=== PATIENT | male | born 1960 | race Caucasian/White ===

== ENCOUNTER 2021-08-02 16:53 | Inpatient (IN) ==
[2021-08-02] MEDS ORDERED: Ondansetron 4 MG/2 ML VIAL IVP PRN (19:46)
[2021-08-02] MEDS ORDERED: Naloxone 0.4 MG/ML INJ IVP PRN (19:46)
[2021-08-02] MEDS ORDERED: Ipratropium 1 PUFF INHALER IH PRN (19:48)
[2021-08-03] MEDS: *HR* Enoxaparin 40 MG/0.4 ML SYRINGE SQ SCH (05:11)
[2021-08-03 05:27] LABS: Basophils % 0.2 %; Hematocrit 44.5 % (37.5-50.1); Hemoglobin 15.3 g/dL (12.9-16.9); Immature Granulocytes % 0.5 % (0-4); Lymphocytes # 0.4 K/mcL (0.6-4.6); Lymphocytes % 8.9 %; Mean Corpuscular HGB Conc 34.4 g/dL (31.6-35.5); Mean Corpuscular Hemoglobin 31.2 pg (28.0-33.3); Mean Corpuscular Volume 90.6 fL (83.0-100.0); Mean Platelet Volume 11.8 fL (9.4-12.4); Monocytes # 0.6 K/mcL (0.0-1.3); Monocytes % 14.9 %; Neutrophils # 3.2 K/mcL (1.6-8.9); Platelet Count 110 K/mcL (140-400); Red Blood Count 4.91 M/mcL (4.19-5.50); Red Cell Distribution Width 11.8 % (11.5-14.5); Segmented Neutrophils % 75.5 %; White Blood Count 4.2 K/mcL (4.3-11.1)
[2021-08-03 05:44] LABS: D-Dimer 446 ng/mLFEU (0-500)
[2021-08-03 06:12] LABS: Fibrinogen 469 mg/dL (169-393)
[2021-08-03 06:21] LABS: Alanine Aminotransferase 106 Units/L (7-52); Albumin 3.6 g/dL (3.5-5.7); Albumin/Globulin Ratio 1.1 (1.1-2.2); Alkaline Phosphatase 41 Units/L (34-104); Aspartate Amino Transferase 111 Units/L (13-39); BUN/Creatinine Ratio 21 (6-26); Bilirubin,Total 0.7 mg/dL (0.3-1.0); Blood Urea Nitrogen 18 mg/dL (6-20); Calcium 8.8 mg/dL (8.6-10.3); Carbon Dioxide 27 mEq/L (23-29); Chloride 101 mEq/L (98-107); Globulin 3.3 g/dL (2.4-3.5); Glucose 138 mg/dL (70-105); Osmolality,Calculated 290 (280-300); Potassium 3.9 mEq/L (3.5-5.1); Sodium 138 mEq/L (136-145); Total Protein 6.9 g/dL (6.4-8.9); eGFR For African Americans > 60 (> 60); eGFR For Non-African Americans > 60 (> 60)
[2021-08-03] MEDS: Dexamethasone Sodium Phos/PF 10 MG/ML VIAL IVP SCH (08:30)
[2021-08-03] MEDS: Ipratropium 1 PUFF INHALER IH SCH ×4 (08:38→20:31)
[2021-08-03] MEDS: Remdesivir 100 MG in 0.9 % Sodium Chloride 100 ML IVPB SCH (16:51)
[2021-08-03 19:45] LABS: C-Reactive Protein 24 mg/L (Less than 10); Ferritin > 1500 ng/mL (20-250)
[2021-08-03] MEDS ORDERED: Chloraseptic Spray 177 ML BOTTLE MM PRN (22:28)
[2021-08-04] MEDS: Ipratropium 1 PUFF INHALER IH SCH ×7 (03:14→23:17)
[2021-08-04] MEDS: *HR* Enoxaparin 40 MG/0.4 ML SYRINGE SQ SCH (05:19)
[2021-08-04] MEDS: Cholecalciferol (D-3) 1,000 UNIT (25MCG) TABLET PO SCH (08:16)
[2021-08-04] MEDS: Ascorbic Acid 500 MG TABLET PO SCH (08:16)
[2021-08-04] MEDS: Dexamethasone Sodium Phos/PF 10 MG/ML VIAL IVP SCH (08:16)
[2021-08-04 10:08] LABS: Eosinophils % 0.2 %; Mean Corpuscular Volume 92.2 fL (83.0-100.0); Red Cell Distribution Width 11.9 % (11.5-14.5)
[2021-08-04 10:10] LABS: Basophils % 0.2 %; Hemoglobin 15.8 g/dL (12.9-16.9); Immature Granulocytes % 0.5 % (0-4); Immature Platelets 15.8 % (1.1-6.1); Lymphocytes # 0.3 K/mcL (0.6-4.6); Lymphocytes % 5.2 %; Mean Corpuscular HGB Conc 33.6 g/dL (31.6-35.5); Mean Platelet Volume 12.4 fL (9.4-12.4); Monocytes # 0.4 K/mcL (0.0-1.3); Monocytes % 6.1 %; Platelet Count 111 K/mcL (140-400); Segmented Neutrophils % 87.8 %; White Blood Count 6.5 K/mcL (4.3-11.1)
[2021-08-04 10:18] LABS: Neutrophils # 5.7 K/mcL (1.6-8.9)
[2021-08-04 10:27] LABS: Alanine Aminotransferase 229 Units/L (7-52); Albumin 3.5 g/dL (3.5-5.7); Alkaline Phosphatase 45 Units/L (34-104); Aspartate Amino Transferase 168 Units/L (13-39); BUN/Creatinine Ratio 30 (6-26); Bilirubin,Total 0.9 mg/dL (0.3-1.0); Blood Urea Nitrogen 24 mg/dL (6-20); Calcium 8.6 mg/dL (8.6-10.3); Carbon Dioxide 27 mEq/L (23-29); Chloride 100 mEq/L (98-107); Globulin 3.4 g/dL (2.4-3.5); Glucose 207 mg/dL (70-105); Osmolality,Calculated 296 (280-300); Potassium 4.2 mEq/L (3.5-5.1); Sodium 138 mEq/L (136-145); Total Protein 6.9 g/dL (6.4-8.9); eGFR For African Americans > 60 (> 60); eGFR For Non-African Americans > 60 (> 60)
[2021-08-04] MEDS: Remdesivir 100 MG in 0.9 % Sodium Chloride 100 ML IVPB SCH (17:10)
[2021-08-05] MEDS: Ipratropium 1 PUFF INHALER IH SCH ×6 (03:48→23:32)
[2021-08-05] MEDS: *HR* Enoxaparin 40 MG/0.4 ML SYRINGE SQ SCH (06:20)
[2021-08-05 06:29] LABS: Basophils % 0.3 %; Hematocrit 44.1 % (37.5-50.1); Immature Granulocytes % 0.4 % (0-4); Lymphocytes # 0.4 K/mcL (0.6-4.6); Lymphocytes % 5.7 %; Mean Corpuscular Hemoglobin 30.9 pg (28.0-33.3); Mean Corpuscular Volume 90.9 fL (83.0-100.0); Mean Platelet Volume 11.5 fL (9.4-12.4); Monocytes # 0.8 K/mcL (0.0-1.3); Neutrophils # 6.4 K/mcL (1.6-8.9); Platelet Count 143 K/mcL (140-400); Red Blood Count 4.85 M/mcL (4.19-5.50); Red Cell Distribution Width 11.7 % (11.5-14.5); Segmented Neutrophils % 83.6 %; White Blood Count 7.7 K/mcL (4.3-11.1)
[2021-08-05 06:49] LABS: Platelet Estimate Normal (Normal)
[2021-08-05 06:55] LABS: Alanine Aminotransferase 192 Units/L (7-52); Albumin 3.3 g/dL (3.5-5.7); Albumin/Globulin Ratio 1.2 (1.1-2.2); Alkaline Phosphatase 42 Units/L (34-104); Aspartate Amino Transferase 81 Units/L (13-39); BUN/Creatinine Ratio 31 (6-26); Bilirubin,Total 0.7 mg/dL (0.3-1.0); Blood Urea Nitrogen 22 mg/dL (6-20); Calcium 8.3 mg/dL (8.6-10.3); Carbon Dioxide 28 mEq/L (23-29); Chloride 104 mEq/L (98-107); Globulin 2.8 g/dL (2.4-3.5); Glucose 150 mg/dL (70-105); Lactate Dehydrogenase 380 Units/L (140-271); Osmolality,Calculated 294 (280-300); Sodium 139 mEq/L (136-145); Total Protein 6.1 g/dL (6.4-8.9); eGFR For African Americans > 60 (> 60); eGFR For Non-African Americans > 60 (> 60)
[2021-08-05 07:13] LABS: Ferritin > 1500 ng/mL (20-250)
[2021-08-05] MEDS: Dexamethasone Sodium Phos/PF 10 MG/ML VIAL IVP SCH (07:25)
[2021-08-05] MEDS: Ascorbic Acid 500 MG TABLET PO SCH (07:25)
[2021-08-05] MEDS: Cholecalciferol (D-3) 1,000 UNIT (25MCG) TABLET PO SCH (07:25)
[2021-08-05] MEDS: Remdesivir 100 MG in 0.9 % Sodium Chloride 100 ML IVPB SCH (17:19)
[2021-08-06] MEDS: Ipratropium 1 PUFF INHALER IH SCH ×5 (04:07→19:56)
[2021-08-06] MEDS: *HR* Enoxaparin 40 MG/0.4 ML SYRINGE SQ SCH (06:03)
[2021-08-06 07:54] LABS: Basophils % 0.2 %; Hematocrit 43.1 % (37.5-50.1); Hemoglobin 14.5 g/dL (12.9-16.9); Immature Granulocytes % 1.2 % (0-4); Lymphocytes # 0.4 K/mcL (0.6-4.6); Lymphocytes % 4.3 %; Mean Corpuscular HGB Conc 33.6 g/dL (31.6-35.5); Mean Corpuscular Hemoglobin 31.4 pg (28.0-33.3); Mean Corpuscular Volume 93.3 fL (83.0-100.0); Mean Platelet Volume 11.7 fL (9.4-12.4); Monocytes # 0.6 K/mcL (0.0-1.3); Monocytes % 5.8 %; Platelet Count 175 K/mcL (140-400); Red Blood Count 4.62 M/mcL (4.19-5.50); Red Cell Distribution Width 11.7 % (11.5-14.5); Segmented Neutrophils % 88.5 %; White Blood Count 10.2 K/mcL (4.3-11.1)
[2021-08-06 08:19] LABS: BUN/Creatinine Ratio 27 (6-26); Blood Urea Nitrogen 21 mg/dL (6-20); Calcium 8.4 mg/dL (8.6-10.3); Carbon Dioxide 29 mEq/L (23-29); Chloride 103 mEq/L (98-107); Glucose 146 mg/dL (70-105); Osmolality,Calculated 294 (280-300); Potassium 4.6 mEq/L (3.5-5.1); Sodium 139 mEq/L (136-145); eGFR For African Americans > 60 (> 60); eGFR For Non-African Americans > 60 (> 60)
[2021-08-06] MEDS: Dexamethasone Sodium Phos/PF 10 MG/ML VIAL IVP SCH (08:25)
[2021-08-06] MEDS: Ascorbic Acid 500 MG TABLET PO SCH (08:26)
[2021-08-06] MEDS: Cholecalciferol (D-3) 1,000 UNIT (25MCG) TABLET PO SCH (08:26)
[2021-08-07] MEDS: Ipratropium 1 PUFF INHALER IH SCH ×6 (00:03→20:21)
[2021-08-07 05:25] LABS: Basophils % 0.2 %; Hematocrit 42.6 % (37.5-50.1); Hemoglobin 14.8 g/dL (12.9-16.9); Immature Granulocytes % 1.4 % (0-4); Lymphocytes # 0.4 K/mcL (0.6-4.6); Lymphocytes % 3.9 %; Mean Corpuscular HGB Conc 34.7 g/dL (31.6-35.5); Mean Corpuscular Hemoglobin 31.9 pg (28.0-33.3); Mean Corpuscular Volume 91.8 fL (83.0-100.0); Mean Platelet Volume 11.3 fL (9.4-12.4); Monocytes # 0.6 K/mcL (0.0-1.3); Neutrophils # 10.2 K/mcL (1.6-8.9); Platelet Count 183 K/mcL (140-400); Red Blood Count 4.64 M/mcL (4.19-5.50); Red Cell Distribution Width 11.7 % (11.5-14.5); Segmented Neutrophils % 89.5 %; White Blood Count 11.4 K/mcL (4.3-11.1)
[2021-08-07 05:50] LABS: Alanine Aminotransferase 107 Units/L (7-52); Albumin 3.2 g/dL (3.5-5.7); Alkaline Phosphatase 45 Units/L (34-104); Aspartate Amino Transferase 24 Units/L (13-39); BUN/Creatinine Ratio 30 (6-26); Bilirubin,Total 0.7 mg/dL (0.3-1.0); Blood Urea Nitrogen 22 mg/dL (6-20); Calcium 8.4 mg/dL (8.6-10.3); Carbon Dioxide 26 mEq/L (23-29); Chloride 105 mEq/L (98-107); Globulin 3.2 g/dL (2.4-3.5); Glucose 170 mg/dL (70-105); Lactate Dehydrogenase 385 Units/L (140-271); Osmolality,Calculated 291 (280-300); Potassium 4.7 mEq/L (3.5-5.1); Sodium 137 mEq/L (136-145); Total Protein 6.4 g/dL (6.4-8.9); eGFR For African Americans > 60 (> 60); eGFR For Non-African Americans > 60 (> 60)
[2021-08-07 06:03] LABS: Ferritin 1415 ng/mL (20-250)
[2021-08-07] MEDS: *HR* Enoxaparin 40 MG/0.4 ML SYRINGE SQ SCH (06:27)
[2021-08-07] MEDS ORDERED: Furosemide 40 MG/4 ML VIAL IVP ONE (09:13)
[2021-08-07] MEDS: Ascorbic Acid 500 MG TABLET PO SCH (09:35)
[2021-08-07] MEDS: Dexamethasone Sodium Phos/PF 10 MG/ML VIAL IVP SCH (09:35)
[2021-08-07] MEDS: Cholecalciferol (D-3) 1,000 UNIT (25MCG) TABLET PO SCH (09:35)
[2021-08-07] MEDS: ELDERBERRY PO SCH (11:35)
[2021-08-08] MEDS: Ipratropium 1 PUFF INHALER IH SCH ×7 (00:10→23:08)
[2021-08-08 03:38] LABS: Basophils # 0.1 K/mcL (0.0-0.2); Basophils % 0.4 %; Hematocrit 45.7 % (37.5-50.1); Hemoglobin 15.7 g/dL (12.9-16.9); Immature Granulocytes % 2.7 % (0-4); Lymphocytes # 0.4 K/mcL (0.6-4.6); Lymphocytes % 2.8 %; Mean Corpuscular HGB Conc 34.4 g/dL (31.6-35.5); Mean Corpuscular Hemoglobin 31.5 pg (28.0-33.3); Mean Corpuscular Volume 91.6 fL (83.0-100.0); Mean Platelet Volume 11.3 fL (9.4-12.4); Monocytes # 0.5 K/mcL (0.0-1.3); Neutrophils # 11.4 K/mcL (1.6-8.9); Platelet Count 235 K/mcL (140-400); Red Blood Count 4.99 M/mcL (4.19-5.50); Red Cell Distribution Width 11.8 % (11.5-14.5); Segmented Neutrophils % 90.1 %; White Blood Count 12.7 K/mcL (4.3-11.1)
[2021-08-08 03:55] LABS: Alanine Aminotransferase 89 Units/L (7-52); Albumin 3.4 g/dL (3.5-5.7); Alkaline Phosphatase 46 Units/L (34-104); Aspartate Amino Transferase 24 Units/L (13-39); BUN/Creatinine Ratio 26 (6-26); Bilirubin,Total 0.7 mg/dL (0.3-1.0); Blood Urea Nitrogen 21 mg/dL (6-20); Calcium 8.5 mg/dL (8.6-10.3); Carbon Dioxide 28 mEq/L (23-29); Chloride 99 mEq/L (98-107); Globulin 3.5 g/dL (2.4-3.5); Glucose 227 mg/dL (70-105); Osmolality,Calculated 290 (280-300); Potassium 4.7 mEq/L (3.5-5.1); Sodium 135 mEq/L (136-145); Total Protein 6.9 g/dL (6.4-8.9); eGFR For African Americans > 60 (> 60); eGFR For Non-African Americans > 60 (> 60)
[2021-08-08] MEDS: *HR* Enoxaparin 40 MG/0.4 ML SYRINGE SQ SCH (06:18)
[2021-08-08] MEDS: Ascorbic Acid 500 MG TABLET PO SCH (07:48)
[2021-08-08] MEDS: Cholecalciferol (D-3) 1,000 UNIT (25MCG) TABLET PO SCH (07:48)
[2021-08-08] MEDS: ELDERBERRY PO SCH (07:54)
[2021-08-08] MEDS ORDERED: Furosemide 40 MG/4 ML VIAL IVP ONE (07:56)
[2021-08-09] MEDS: Ipratropium 1 PUFF INHALER IH SCH ×6 (03:45→23:14)
[2021-08-09] MEDS: *HR* Enoxaparin 40 MG/0.4 ML SYRINGE SQ SCH (05:16)
[2021-08-09 05:53] LABS: BUN/Creatinine Ratio 34 (6-26); Blood Urea Nitrogen 25 mg/dL (6-20); Calcium 8.8 mg/dL (8.6-10.3); Carbon Dioxide 25 mEq/L (23-29); Chloride 101 mEq/L (98-107); Glucose 147 mg/dL (70-105); Osmolality,Calculated 287 (280-300); Potassium 4.3 mEq/L (3.5-5.1); Sodium 135 mEq/L (136-145); eGFR For African Americans > 60 (> 60); eGFR For Non-African Americans > 60 (> 60)
[2021-08-09 06:02] LABS: Basophils # 0.1 K/mcL (0.0-0.2); Basophils % 0.6 %; Eosinophils % 0.2 %; Hematocrit 47.5 % (37.5-50.1); Hemoglobin 16.2 g/dL (12.9-16.9); Immature Granulocytes % 4.4 % (0-4); Lymphocytes # 0.5 K/mcL (0.6-4.6); Lymphocytes % 3.6 %; Mean Corpuscular HGB Conc 34.1 g/dL (31.6-35.5); Mean Corpuscular Hemoglobin 31.1 pg (28.0-33.3); Mean Corpuscular Volume 91.2 fL (83.0-100.0); Mean Platelet Volume 10.9 fL (9.4-12.4); Monocytes # 0.5 K/mcL (0.0-1.3); Monocytes % 3.1 %; Neutrophils # 12.7 K/mcL (1.6-8.9); Platelet Count 210 K/mcL (140-400); Red Blood Count 5.21 M/mcL (4.19-5.50); Red Cell Distribution Width 11.7 % (11.5-14.5); Segmented Neutrophils % 88.1 %; White Blood Count 14.5 K/mcL (4.3-11.1)
[2021-08-09] MEDS ORDERED: Isovue-370 500 ML BOTTLE IVP ONE (07:28)
[2021-08-09] MEDS: Ascorbic Acid 500 MG TABLET PO SCH (07:45)
[2021-08-09] MEDS: Cholecalciferol (D-3) 1,000 UNIT (25MCG) TABLET PO SCH (07:45)
[2021-08-09] MEDS: ELDERBERRY PO SCH (07:45)
[2021-08-09] MEDS: Furosemide 40 MG/4 ML VIAL IVP SCH (10:46)
[2021-08-09] MEDS ORDERED: *HR* Enoxaparin 60 MG/0.6 ML SYRINGE SQ ONE (13:04)
[2021-08-09] MEDS ORDERED: Enoxaparin Weight Dosing SQ SCH (13:15)
[2021-08-09] MEDS: *HR* Enoxaparin 100 MG/ML SYRINGE SQ SCH (20:17)
[2021-08-10] MEDS: Ipratropium 1 PUFF INHALER IH SCH ×6 (03:02→23:32)
[2021-08-10] MEDS: Cholecalciferol (D-3) 1,000 UNIT (25MCG) TABLET PO SCH (08:03)
[2021-08-10] MEDS: Ascorbic Acid 500 MG TABLET PO SCH (08:03)
[2021-08-10] MEDS: *HR* Enoxaparin 100 MG/ML SYRINGE SQ SCH ×2 (08:04→19:51)
[2021-08-10] MEDS: Furosemide 40 MG/4 ML VIAL IVP SCH (08:04)
[2021-08-10] MEDS: ELDERBERRY PO SCH (08:04)
[2021-08-10 08:31] LABS: Basophils # 0.1 K/mcL (0.0-0.2); Basophils % 0.7 %; Eosinophils # 0.1 K/mcL (0.0-0.6); Eosinophils % 0.6 %; Hematocrit 50.7 % (37.5-50.1); Hemoglobin 17.1 g/dL (12.9-16.9); Immature Granulocytes % 3.6 % (0-4); Lymphocytes # 0.5 K/mcL (0.6-4.6); Lymphocytes % 3.5 %; Mean Corpuscular HGB Conc 33.7 g/dL (31.6-35.5); Mean Corpuscular Hemoglobin 31.4 pg (28.0-33.3); Mean Corpuscular Volume 93.2 fL (83.0-100.0); Monocytes # 0.5 K/mcL (0.0-1.3); Monocytes % 3.2 %; Neutrophils # 12.6 K/mcL (1.6-8.9); Platelet Count 204 K/mcL (140-400); Red Blood Count 5.44 M/mcL (4.19-5.50); Red Cell Distribution Width 11.9 % (11.5-14.5); Segmented Neutrophils % 88.4 %; White Blood Count 14.3 K/mcL (4.3-11.1)
[2021-08-10 08:50] LABS: Alanine Aminotransferase 79 Units/L (7-52); Albumin 3.5 g/dL (3.5-5.7); Albumin/Globulin Ratio 0.9 (1.1-2.2); Alkaline Phosphatase 42 Units/L (34-104); Aspartate Amino Transferase 33 Units/L (13-39); BUN/Creatinine Ratio 31 (6-26); Bilirubin,Total 1.3 mg/dL (0.3-1.0); Blood Urea Nitrogen 30 mg/dL (6-20); Calcium 8.8 mg/dL (8.6-10.3); Carbon Dioxide 30 mEq/L (23-29); Chloride 98 mEq/L (98-107); Globulin 3.9 g/dL (2.4-3.5); Glucose 122 mg/dL (70-105); Lactate Dehydrogenase 461 Units/L (140-271); Osmolality,Calculated 289 (280-300); Potassium 4.7 mEq/L (3.5-5.1); Sodium 136 mEq/L (136-145); Total Protein 7.4 g/dL (6.4-8.9); eGFR For African Americans > 60 (> 60); eGFR For Non-African Americans > 60 (> 60)
[2021-08-10 09:15] LABS: Ferritin > 1500 ng/mL (20-250)
[2021-08-11] MEDS: Ipratropium 1 PUFF INHALER IH SCH ×5 (03:21→20:03)
[2021-08-11 07:41] LABS: Basophils # 0.1 K/mcL (0.0-0.2); Basophils % 0.6 %; Eosinophils # 0.1 K/mcL (0.0-0.6); Eosinophils % 0.6 %; Hematocrit 50.2 % (37.5-50.1); Hemoglobin 16.7 g/dL (12.9-16.9); Immature Granulocytes % 4.7 % (0-4); Lymphocytes # 0.4 K/mcL (0.6-4.6); Lymphocytes % 2.4 %; Mean Corpuscular HGB Conc 33.3 g/dL (31.6-35.5); Mean Corpuscular Volume 93.1 fL (83.0-100.0); Mean Platelet Volume 11.2 fL (9.4-12.4); Monocytes # 0.5 K/mcL (0.0-1.3); Monocytes % 3.5 %; Neutrophils # 13.8 K/mcL (1.6-8.9); Platelet Count 188 K/mcL (140-400); Red Blood Count 5.39 M/mcL (4.19-5.50); Red Cell Distribution Width 11.8 % (11.5-14.5); Segmented Neutrophils % 88.2 %; White Blood Count 15.6 K/mcL (4.3-11.1)
[2021-08-11 07:42] LABS: BUN/Creatinine Ratio 33 (6-26); Blood Urea Nitrogen 30 mg/dL (6-20); Calcium 9.3 mg/dL (8.6-10.3); Carbon Dioxide 33 mEq/L (23-29); Chloride 97 mEq/L (98-107); Glucose 140 mg/dL (70-105); Osmolality,Calculated 292 (280-300); Potassium 4.4 mEq/L (3.5-5.1); Sodium 137 mEq/L (136-145); eGFR For African Americans > 60 (> 60); eGFR For Non-African Americans > 60 (> 60)
[2021-08-11] MEDS: Ascorbic Acid 500 MG TABLET PO SCH (09:34)
[2021-08-11] MEDS: Furosemide 40 MG/4 ML VIAL IVP SCH (09:34)
[2021-08-11] MEDS: Cholecalciferol (D-3) 1,000 UNIT (25MCG) TABLET PO SCH (09:34)
[2021-08-11] MEDS: ELDERBERRY PO SCH (09:35)
[2021-08-11] MEDS: *HR* Enoxaparin 100 MG/ML SYRINGE SQ SCH ×2 (10:12→21:25)
[2021-08-12] MEDS: Ipratropium 1 PUFF INHALER IH SCH ×7 (04:44→23:14)
[2021-08-12] MEDS: Cholecalciferol (D-3) 1,000 UNIT (25MCG) TABLET PO SCH (08:00)
[2021-08-12] MEDS: Ascorbic Acid 500 MG TABLET PO SCH (08:00)
[2021-08-12] MEDS: ELDERBERRY PO SCH (08:00)
[2021-08-12] MEDS: *HR* Enoxaparin 100 MG/ML SYRINGE SQ SCH ×3 (08:01→20:28)
[2021-08-12] MEDS: Furosemide 40 MG/4 ML VIAL IVP SCH (08:02)
[2021-08-13] MEDS: Ipratropium 1 PUFF INHALER IH SCH ×7 (03:35→23:48)
[2021-08-13 06:48] LABS: Basophils # 0.1 K/mcL (0.0-0.2); Basophils % 0.4 %; Eosinophils # 0.1 K/mcL (0.0-0.6); Eosinophils % 0.6 %; Hematocrit 50.2 % (37.5-50.1); Hemoglobin 17.4 g/dL (12.9-16.9); Immature Granulocytes % 4.6 % (0-4); Lymphocytes # 0.5 K/mcL (0.6-4.6); Lymphocytes % 3.2 %; Mean Corpuscular HGB Conc 34.7 g/dL (31.6-35.5); Mean Corpuscular Volume 92.4 fL (83.0-100.0); Mean Platelet Volume 11.6 fL (9.4-12.4); Monocytes # 0.8 K/mcL (0.0-1.3); Monocytes % 4.8 %; Neutrophils # 14.2 K/mcL (1.6-8.9); Platelet Count 183 K/mcL (140-400); Red Blood Count 5.43 M/mcL (4.19-5.50); Red Cell Distribution Width 11.7 % (11.5-14.5); Segmented Neutrophils % 86.4 %; White Blood Count 16.4 K/mcL (4.3-11.1)
[2021-08-13 06:57] LABS: Fibrinogen 524 mg/dL (169-393)
[2021-08-13 07:07] LABS: D-Dimer 1315 ng/mLFEU (0-500)
[2021-08-13 07:09] LABS: Alanine Aminotransferase 168 Units/L (7-52); Albumin 3.3 g/dL (3.5-5.7); Albumin/Globulin Ratio 0.9 (1.1-2.2); Alkaline Phosphatase 40 Units/L (34-104); Aspartate Amino Transferase 57 Units/L (13-39); BUN/Creatinine Ratio 41 (6-26); Bilirubin,Total 1.2 mg/dL (0.3-1.0); Blood Urea Nitrogen 34 mg/dL (6-20); Calcium 9.2 mg/dL (8.6-10.3); Carbon Dioxide 30 mEq/L (23-29); Chloride 95 mEq/L (98-107); Globulin 3.7 g/dL (2.4-3.5); Glucose 124 mg/dL (70-105); Lactate Dehydrogenase 462 Units/L (140-271); Magnesium 2.4 mg/dL (1.6-2.6); Osmolality,Calculated 289 (280-300); Phosphorous 4.1 mg/dL (2.7-4.5); Potassium 4.6 mEq/L (3.5-5.1); Sodium 135 mEq/L (136-145); eGFR For African Americans > 60 (> 60); eGFR For Non-African Americans > 60 (> 60)
[2021-08-13 07:26] LABS: Ferritin > 1500 ng/mL (20-250)
[2021-08-13] MEDS: Furosemide 40 MG/4 ML VIAL IVP SCH (08:31)
[2021-08-13] MEDS: Cholecalciferol (D-3) 1,000 UNIT (25MCG) TABLET PO SCH (08:31)
[2021-08-13] MEDS: *HR* Enoxaparin 100 MG/ML SYRINGE SQ SCH ×2 (08:31→20:27)
[2021-08-13] MEDS: Ascorbic Acid 500 MG TABLET PO SCH (08:31)
[2021-08-13] MEDS: ELDERBERRY PO SCH (08:32)
[2021-08-13] MEDS: carvediloL 6.25 MG TABLET PO SCH ×2 (11:32→17:00)
[2021-08-13 21:25] LABS: C-Reactive Protein 27 mg/L (Less than 10)
[2021-08-14] MEDS: Ipratropium 1 PUFF INHALER IH SCH ×6 (03:37→23:35)
[2021-08-14] MEDS: Cholecalciferol (D-3) 1,000 UNIT (25MCG) TABLET PO SCH (08:13)
[2021-08-14] MEDS: Ascorbic Acid 500 MG TABLET PO SCH (08:13)
[2021-08-14] MEDS: carvediloL 6.25 MG TABLET PO SCH ×2 (08:14→18:03)
[2021-08-14] MEDS: *HR* Enoxaparin 100 MG/ML SYRINGE SQ SCH ×2 (08:26→20:53)
[2021-08-14] MEDS: ELDERBERRY PO SCH (08:27)
[2021-08-14] MEDS ORDERED: Furosemide 20 MG/2 ML VIAL IVP SCH (09:00)
[2021-08-15] MEDS: Ipratropium 1 PUFF INHALER IH SCH ×5 (03:49→19:59)
[2021-08-15 07:52] LABS: Eosinophils # 0.2 K/mcL (0.0-0.6); Hematocrit 45.8 % (37.5-50.1); Mean Corpuscular HGB Conc 34.1 g/dL (31.6-35.5); Mean Corpuscular Hemoglobin 31.2 pg (28.0-33.3); Mean Corpuscular Volume 91.6 fL (83.0-100.0); Mean Platelet Volume 12.1 fL (9.4-12.4); Platelet Count 152 K/mcL (140-400); Red Cell Distribution Width 11.6 % (11.5-14.5); White Blood Count 14.8 K/mcL (4.3-11.1)
[2021-08-15 08:06] LABS: Hemoglobin 15.6 g/dL (12.9-16.9)
[2021-08-15 08:16] LABS: Alanine Aminotransferase 157 Units/L (7-52); Alkaline Phosphatase 40 Units/L (34-104); Aspartate Amino Transferase 50 Units/L (13-39); BUN/Creatinine Ratio 40 (6-26); Blood Urea Nitrogen 27 mg/dL (6-20); Calcium 8.4 mg/dL (8.6-10.3); Carbon Dioxide 31 mEq/L (23-29); Chloride 94 mEq/L (98-107); Glucose 102 mg/dL (70-105); Magnesium 2.2 mg/dL (1.6-2.6); Osmolality,Calculated 279 (280-300); Phosphorous 3.7 mg/dL (2.7-4.5); Potassium 4.2 mEq/L (3.5-5.1); Sodium 132 mEq/L (136-145); eGFR For African Americans > 60 (> 60); eGFR For Non-African Americans > 60 (> 60)
[2021-08-15 09:17] LABS: Monocytes # 0.4 K/mcL (0.0-1.3); Neutrophils # 13.2 K/mcL (1.6-8.9)
[2021-08-15 09:33] LABS: Platelet Estimate Normal (Normal)
[2021-08-15] MEDS: *HR* Enoxaparin 100 MG/ML SYRINGE SQ SCH ×2 (10:12→21:18)
[2021-08-15] MEDS: Cholecalciferol (D-3) 1,000 UNIT (25MCG) TABLET PO SCH (10:12)
[2021-08-15] MEDS: Ascorbic Acid 500 MG TABLET PO SCH (10:12)
[2021-08-15] MEDS: ELDERBERRY PO SCH (10:13)
[2021-08-15] MEDS: carvediloL 6.25 MG TABLET PO SCH (10:15)
[2021-08-16] MEDS: Ipratropium 1 PUFF INHALER IH SCH ×7 (00:13→23:49)
[2021-08-16 08:26] LABS: Alanine Aminotransferase 153 Units/L (7-52); Albumin 3.1 g/dL (3.5-5.7); Albumin/Globulin Ratio 1.1 (1.1-2.2); Alkaline Phosphatase 41 Units/L (34-104); Aspartate Amino Transferase 45 Units/L (13-39); BUN/Creatinine Ratio 32 (6-26); Bilirubin,Total 0.9 mg/dL (0.3-1.0); Blood Urea Nitrogen 22 mg/dL (6-20); Calcium 8.3 mg/dL (8.6-10.3); Carbon Dioxide 31 mEq/L (23-29); Chloride 96 mEq/L (98-107); Globulin 2.7 g/dL (2.4-3.5); Glucose 95 mg/dL (70-105); Magnesium 2.3 mg/dL (1.6-2.6); Osmolality,Calculated 281 (280-300); Phosphorous 3.4 mg/dL (2.7-4.5); Potassium 4.5 mEq/L (3.5-5.1); Sodium 134 mEq/L (136-145); Total Protein 5.8 g/dL (6.4-8.9); eGFR For African Americans > 60 (> 60); eGFR For Non-African Americans > 60 (> 60)
[2021-08-16] MEDS: Ascorbic Acid 500 MG TABLET PO SCH (08:27)
[2021-08-16] MEDS: carvediloL 6.25 MG TABLET PO SCH ×2 (08:27→16:49)
[2021-08-16] MEDS: ELDERBERRY PO SCH (08:28)
[2021-08-16] MEDS: Cholecalciferol (D-3) 1,000 UNIT (25MCG) TABLET PO SCH (08:28)
[2021-08-16] MEDS: *HR* Enoxaparin 100 MG/ML SYRINGE SQ SCH ×2 (08:28→21:51)
[2021-08-16] MEDS: Chlorhexidine Rinse 15 ML MOUTHWASH MM SCH ×2 (10:07→21:51)
[2021-08-16] MEDS: Saline Nasal Spray 44 ML BOTTLE NS SCH ×3 (10:07→16:50)
[2021-08-16] MEDS: Artificial Tears SOLN 15 ML BOTTLE BOTH EYES SCH ×3 (10:07→16:50)
[2021-08-16] MEDS: Saliva Stimulant 44.3ml BOTTLE PO SCH ×4 (10:07→18:41)
[2021-08-16 11:37] LABS: C-Reactive Protein 26 mg/L (Less than 10)
[2021-08-17 01:42] LABS: Hemoglobin 14.5 g/dL (12.9-16.9); Red Cell Distribution Width 11.8 % (11.5-14.5)
[2021-08-17 01:43] LABS: Hematocrit 42.9 % (37.5-50.1); Mean Corpuscular HGB Conc 33.8 g/dL (31.6-35.5); Mean Corpuscular Hemoglobin 31.4 pg (28.0-33.3); Mean Corpuscular Volume 92.9 fL (83.0-100.0); Mean Platelet Volume 11.8 fL (9.4-12.4); Platelet Count 140 K/mcL (140-400); Red Blood Count 4.62 M/mcL (4.19-5.50); White Blood Count 14.2 K/mcL (4.3-11.1)
[2021-08-17 02:00] LABS: Alanine Aminotransferase 135 Units/L (7-52); Albumin 2.8 g/dL (3.5-5.7); Alkaline Phosphatase 37 Units/L (34-104); Aspartate Amino Transferase 39 Units/L (13-39); BUN/Creatinine Ratio 36 (6-26); Bilirubin,Total 0.5 mg/dL (0.3-1.0); Blood Urea Nitrogen 24 mg/dL (6-20); C-Reactive Protein 22 mg/L (Less than 10); Calcium 8.4 mg/dL (8.6-10.3); Carbon Dioxide 29 mEq/L (23-29); Chloride 100 mEq/L (98-107); Globulin 2.8 g/dL (2.4-3.5); Glucose 150 mg/dL (70-105); Lactate Dehydrogenase 276 Units/L (140-271); Magnesium 2.3 mg/dL (1.6-2.6); Osmolality,Calculated 287 (280-300); Phosphorous 3.1 mg/dL (2.7-4.5); Potassium 4.1 mEq/L (3.5-5.1); Sodium 135 mEq/L (136-145); Total Protein 5.6 g/dL (6.4-8.9); eGFR For African Americans > 60 (> 60); eGFR For Non-African Americans > 60 (> 60)
[2021-08-17 02:17] LABS: Ferritin 1415 ng/mL (20-250)
[2021-08-17 02:20] LABS: Lymphocytes # 0.9 K/mcL (0.6-4.6); Monocytes # 0.6 K/mcL (0.0-1.3); Neutrophils # 12.8 K/mcL (1.6-8.9)
[2021-08-17 02:21] LABS: Platelet Estimate Normal (Normal)
[2021-08-17] MEDS: Ipratropium 1 PUFF INHALER IH SCH ×6 (03:36→23:46)
[2021-08-17] MEDS: Chlorhexidine Rinse 15 ML MOUTHWASH MM SCH ×2 (08:21→21:24)
[2021-08-17] MEDS: Saliva Stimulant 44.3ml BOTTLE PO SCH ×7 (08:21→23:34)
[2021-08-17] MEDS: Ascorbic Acid 500 MG TABLET PO SCH (08:22)
[2021-08-17] MEDS: carvediloL 6.25 MG TABLET PO SCH ×3 (08:22→21:21)
[2021-08-17] MEDS: Cholecalciferol (D-3) 1,000 UNIT (25MCG) TABLET PO SCH (08:22)
[2021-08-17] MEDS: Saline Nasal Spray 44 ML BOTTLE NS SCH ×6 (08:22→21:25)
[2021-08-17] MEDS: Artificial Tears SOLN 15 ML BOTTLE BOTH EYES SCH ×5 (08:22→21:25)
[2021-08-17] MEDS: ELDERBERRY PO SCH (08:24)
[2021-08-17] MEDS: *HR* Enoxaparin 100 MG/ML SYRINGE SQ SCH ×2 (10:55→21:24)
[2021-08-17 17:45] LABS: INR 1.1; Prothrombin Time 12.6 Seconds (9.4-12.1)
[2021-08-18] MEDS: Saline Nasal Spray 44 ML BOTTLE NS SCH ×6 (00:19→20:03)
[2021-08-18] MEDS: Saliva Stimulant 44.3ml BOTTLE PO SCH ×12 (00:19→22:50)
[2021-08-18] MEDS: Ipratropium 1 PUFF INHALER IH SCH ×5 (03:34→20:30)
[2021-08-18 07:17] LABS: INR 1.1; Prothrombin Time 12.8 Seconds (9.4-12.1)
[2021-08-18 07:45] LABS: Alanine Aminotransferase 130 Units/L (7-52); Albumin 3.1 g/dL (3.5-5.7); Alkaline Phosphatase 47 Units/L (34-104); Aspartate Amino Transferase 45 Units/L (13-39); BUN/Creatinine Ratio 29 (6-26); Bilirubin,Total 0.6 mg/dL (0.3-1.0); Blood Urea Nitrogen 21 mg/dL (6-20); Calcium 8.5 mg/dL (8.6-10.3); Carbon Dioxide 28 mEq/L (23-29); Chloride 104 mEq/L (98-107); Ferritin 1128 ng/mL (20-250); Glucose 121 mg/dL (70-105); Lactate Dehydrogenase 342 Units/L (140-271); Magnesium 2.2 mg/dL (1.6-2.6); Osmolality,Calculated 288 (280-300); Phosphorous 3.7 mg/dL (2.7-4.5); Potassium 4.4 mEq/L (3.5-5.1); Sodium 137 mEq/L (136-145); eGFR For African Americans > 60 (> 60); eGFR For Non-African Americans > 60 (> 60)
[2021-08-18] MEDS: Ascorbic Acid 500 MG TABLET PO SCH (07:59)
[2021-08-18] MEDS: Cholecalciferol (D-3) 1,000 UNIT (25MCG) TABLET PO SCH (07:59)
[2021-08-18] MEDS: *HR* Enoxaparin 100 MG/ML SYRINGE SQ SCH ×2 (07:59→20:03)
[2021-08-18] MEDS: ELDERBERRY PO SCH (07:59)
[2021-08-18] MEDS: Chlorhexidine Rinse 15 ML MOUTHWASH MM SCH ×2 (07:59→20:07)
[2021-08-18] MEDS: carvediloL 6.25 MG TABLET PO SCH ×2 (07:59→17:40)
[2021-08-18] MEDS: Artificial Tears SOLN 15 ML BOTTLE BOTH EYES SCH ×4 (08:00→20:03)
[2021-08-18 08:40] LABS: Albumin/Globulin Ratio 1.1 (1.1-2.2); Globulin 2.7 g/dL (2.4-3.5); Total Protein 5.8 g/dL (6.4-8.9)
[2021-08-18 09:18] LABS: Eosinophils # 0.3 K/mcL (0.0-0.6); Mean Corpuscular HGB Conc 33.3 g/dL (31.6-35.5); Mean Corpuscular Hemoglobin 31.8 pg (28.0-33.3); Mean Corpuscular Volume 95.5 fL (83.0-100.0); Mean Platelet Volume 11.6 fL (9.4-12.4); Platelet Count 150 K/mcL (140-400); Red Blood Count 4.71 M/mcL (4.19-5.50); White Blood Count 15.5 K/mcL (4.3-11.1)
[2021-08-18 09:42] LABS: Lymphocytes # 1.2 K/mcL (0.6-4.6); Monocytes # 0.6 K/mcL (0.0-1.3); Neutrophils # 13.3 K/mcL (1.6-8.9)
[2021-08-18 09:43] LABS: Platelet Estimate Normal (Normal)
[2021-08-18] MEDS ORDERED: Furosemide 40 MG/4 ML VIAL IVP ONE (12:22)
[2021-08-18] MEDS: polyethylene glycoL 3350 17 GM POWD.PACK PO SCH (12:50)
[2021-08-18 13:10] LABS: C-Reactive Protein 19 mg/L (Less than 10)
[2021-08-18] MEDS ORDERED: *HR* Warfarin 5 MG TABLET PO ONE (18:00)
[2021-08-18] MEDS ORDERED: Warfarin perPT PO PRN (18:00)
[2021-08-18] MEDS ORDERED: *HR* LORazepam 2 MG/ML VIAL IVP STA (18:35)
[2021-08-19] MEDS: Ipratropium 1 PUFF INHALER IH SCH ×7 (00:18→22:59)
[2021-08-19] MEDS: Saline Nasal Spray 44 ML BOTTLE NS SCH ×6 (01:13→20:48)
[2021-08-19] MEDS: Saliva Stimulant 44.3ml BOTTLE PO SCH ×11 (01:13→23:09)
[2021-08-19] MEDS: Chlorhexidine Rinse 15 ML MOUTHWASH MM SCH ×2 (09:22→20:47)
[2021-08-19] MEDS: carvediloL 6.25 MG TABLET PO SCH ×2 (09:23→17:20)
[2021-08-19] MEDS: polyethylene glycoL 3350 17 GM POWD.PACK PO SCH (09:23)
[2021-08-19] MEDS: ELDERBERRY PO SCH (09:24)
[2021-08-19] MEDS: Cholecalciferol (D-3) 1,000 UNIT (25MCG) TABLET PO SCH (09:24)
[2021-08-19] MEDS: Ascorbic Acid 500 MG TABLET PO SCH (09:24)
[2021-08-19] MEDS: Artificial Tears SOLN 15 ML BOTTLE BOTH EYES SCH ×5 (09:24→20:48)
[2021-08-19] MEDS: *HR* Enoxaparin 100 MG/ML SYRINGE SQ SCH ×2 (09:26→20:47)
[2021-08-19] MEDS ORDERED: Furosemide 40 MG/4 ML VIAL IVP ONE (09:50)
[2021-08-19 14:56] LABS: Hematocrit 48.1 % (37.5-50.1); Hemoglobin 15.8 g/dL (12.9-16.9); Mean Corpuscular HGB Conc 32.8 g/dL (31.6-35.5); Mean Corpuscular Hemoglobin 31.3 pg (28.0-33.3); Mean Corpuscular Volume 95.2 fL (83.0-100.0); Mean Platelet Volume 11.7 fL (9.4-12.4); Monocytes # 0.6 K/mcL (0.0-1.3); Platelet Count 190 K/mcL (140-400); Red Blood Count 5.05 M/mcL (4.19-5.50); Red Cell Distribution Width 12.2 % (11.5-14.5); White Blood Count 14.7 K/mcL (4.3-11.1)
[2021-08-19 15:29] LABS: Alanine Aminotransferase 148 Units/L (7-52); Albumin 3.4 g/dL (3.5-5.7); Albumin/Globulin Ratio 0.9 (1.1-2.2); Alkaline Phosphatase 55 Units/L (34-104); Aspartate Amino Transferase 60 Units/L (13-39); BUN/Creatinine Ratio 32 (6-26); Bilirubin,Total 0.8 mg/dL (0.3-1.0); Blood Urea Nitrogen 25 mg/dL (6-20); Calcium 8.9 mg/dL (8.6-10.3); Carbon Dioxide 29 mEq/L (23-29); Chloride 98 mEq/L (98-107); Globulin 3.8 g/dL (2.4-3.5); Glucose 141 mg/dL (70-105); Osmolality,Calculated 289 (280-300); Potassium 3.9 mEq/L (3.5-5.1); Sodium 136 mEq/L (136-145); Total Protein 7.2 g/dL (6.4-8.9); eGFR For African Americans > 60 (> 60); eGFR For Non-African Americans > 60 (> 60)
[2021-08-19 15:31] LABS: Lymphocytes # 1.2 K/mcL (0.6-4.6); Neutrophils # 12.4 K/mcL (1.6-8.9); Platelet Estimate Normal (Normal)
[2021-08-19 17:10] LABS: INR 1.4; Prothrombin Time 15.3 Seconds (9.4-12.1)
[2021-08-19] MEDS ORDERED: *HR* Warfarin 5 MG TABLET PO ONE (19:23)
[2021-08-19] MEDS: *HR* LORazepam 2 MG/ML VIAL IVP PRN (21:39)
[2021-08-20] MEDS: Saline Nasal Spray 44 ML BOTTLE NS SCH ×4 (00:26→12:17)
[2021-08-20] MEDS: Saliva Stimulant 44.3ml BOTTLE PO SCH ×7 (00:26→12:17)
[2021-08-20] MEDS: Ipratropium 1 PUFF INHALER IH SCH ×5 (03:36→20:21)
[2021-08-20 07:48] LABS: Hematocrit 42.4 % (37.5-50.1); Mean Corpuscular HGB Conc 33.3 g/dL (31.6-35.5); Mean Corpuscular Hemoglobin 31.7 pg (28.0-33.3); Mean Corpuscular Volume 95.3 fL (83.0-100.0); Mean Platelet Volume 11.6 fL (9.4-12.4); Platelet Count 135 K/mcL (140-400); Red Blood Count 4.45 M/mcL (4.19-5.50); Red Cell Distribution Width 12.1 % (11.5-14.5); White Blood Count 10.5 K/mcL (4.3-11.1)
[2021-08-20 07:54] LABS: INR 1.5; Prothrombin Time 17.1 Seconds (9.4-12.1)
[2021-08-20] MEDS: Artificial Tears SOLN 15 ML BOTTLE BOTH EYES SCH ×2 (07:56→12:17)
[2021-08-20] MEDS: *HR* Enoxaparin 100 MG/ML SYRINGE SQ SCH ×2 (08:03→20:07)
[2021-08-20] MEDS: Cholecalciferol (D-3) 1,000 UNIT (25MCG) TABLET PO SCH (08:03)
[2021-08-20] MEDS: carvediloL 6.25 MG TABLET PO SCH ×2 (08:03→18:50)
[2021-08-20] MEDS: polyethylene glycoL 3350 17 GM POWD.PACK PO SCH (08:04)
[2021-08-20] MEDS: Ascorbic Acid 500 MG TABLET PO SCH (08:04)
[2021-08-20] MEDS: Chlorhexidine Rinse 15 ML MOUTHWASH MM SCH (08:04)
[2021-08-20 08:09] LABS: Alanine Aminotransferase 121 Units/L (7-52); Albumin/Globulin Ratio 1.1 (1.1-2.2); Alkaline Phosphatase 47 Units/L (34-104); Aspartate Amino Transferase 50 Units/L (13-39); BUN/Creatinine Ratio 35 (6-26); Bilirubin,Direct 0.2 mg/dL (0.0-0.2); Bilirubin,Indirect 0.6 mg/dL (0.0-1.0); Bilirubin,Total 0.8 mg/dL (0.3-1.0); Blood Urea Nitrogen 25 mg/dL (6-20); Calcium 8.5 mg/dL (8.6-10.3); Carbon Dioxide 29 mEq/L (23-29); Chloride 100 mEq/L (98-107); Globulin 2.8 g/dL (2.4-3.5); Glucose 110 mg/dL (70-105); Osmolality,Calculated 287 (280-300); Potassium 4.2 mEq/L (3.5-5.1); Sodium 136 mEq/L (136-145); Total Protein 5.8 g/dL (6.4-8.9); eGFR For African Americans > 60 (> 60); eGFR For Non-African Americans > 60 (> 60)
[2021-08-20] MEDS: ELDERBERRY PO SCH (08:25)
[2021-08-20 08:27] LABS: Hemoglobin 14.1 g/dL (12.9-16.9)
[2021-08-20] MEDS ORDERED: Isovue-370 500 ML BOTTLE IVP ONE (09:22)
[2021-08-20 09:25] LABS: Eosinophils # 0.8 K/mcL (0.0-0.6); Lymphocytes # 0.4 K/mcL (0.6-4.6); Monocytes # 0.2 K/mcL (0.0-1.3); Neutrophils # 8.8 K/mcL (1.6-8.9)
[2021-08-20 09:27] LABS: Platelet Estimate Slight Decrease (Normal)
[2021-08-20] MEDS ORDERED: Artificial Tears SOLN 15 ML BOTTLE BOTH EYES PRN (12:33)
[2021-08-20] MEDS ORDERED: Saliva Stimulant 44.3ml BOTTLE PO PRN (12:33)
[2021-08-20] MEDS ORDERED: Saline Nasal Spray 44 ML BOTTLE NS PRN (12:33)
[2021-08-20] MEDS ORDERED: Chlorhexidine Rinse 15 ML MOUTHWASH MM PRN (12:33)
[2021-08-20] MEDS ORDERED: *HR* Warfarin 5 MG TABLET PO ONE (18:00)
[2021-08-20] MEDS: Acetaminophen 325 MG TABLET PO PRN (20:05)
[2021-08-20] MEDS: *HR* LORazepam 2 MG/ML VIAL IVP PRN (20:06)
[2021-08-21] MEDS: Ipratropium 1 PUFF INHALER IH SCH ×7 (00:21→23:07)
[2021-08-21] MEDS: *HR* LORazepam 2 MG/ML VIAL IVP PRN ×2 (02:43→21:57)
[2021-08-21] MEDS: Acetaminophen 325 MG TABLET PO PRN ×2 (05:59→18:54)
[2021-08-21 08:02] LABS: Basophils % 0.5 %; Hemoglobin 13.6 g/dL (12.9-16.9); Mean Corpuscular Volume 95.1 fL (83.0-100.0)
[2021-08-21 08:04] LABS: Basophils # 0.1 K/mcL (0.0-0.2); Eosinophils # 0.3 K/mcL (0.0-0.6); Eosinophils % 3.5 %; Hematocrit 41.1 % (37.5-50.1); Immature Granulocytes % 3.6 % (0-4); Immature Platelets 5.9 % (1.1-6.1); Lymphocytes # 0.3 K/mcL (0.6-4.6); Lymphocytes % 3.3 %; Mean Corpuscular HGB Conc 33.1 g/dL (31.6-35.5); Mean Corpuscular Hemoglobin 31.5 pg (28.0-33.3); Mean Platelet Volume 11.4 fL (9.4-12.4); Monocytes # 0.4 K/mcL (0.0-1.3); Monocytes % 4.3 %; Neutrophils # 8.2 K/mcL (1.6-8.9); Platelet Count 138 K/mcL (140-400); Red Blood Count 4.32 M/mcL (4.19-5.50); Red Cell Distribution Width 12.1 % (11.5-14.5); Segmented Neutrophils % 84.8 %; White Blood Count 9.7 K/mcL (4.3-11.1)
[2021-08-21 08:12] LABS: INR 2.7; Prothrombin Time 29.5 Seconds (9.4-12.1)
[2021-08-21] MEDS: polyethylene glycoL 3350 17 GM POWD.PACK PO SCH (08:18)
[2021-08-21] MEDS: Levalbuterol 1 PUFF INHALER IH SCH ×5 (08:19→23:07)
[2021-08-21] MEDS: Cholecalciferol (D-3) 1,000 UNIT (25MCG) TABLET PO SCH (08:19)
[2021-08-21] MEDS: Ascorbic Acid 500 MG TABLET PO SCH (08:19)
[2021-08-21] MEDS: carvediloL 6.25 MG TABLET PO SCH ×2 (08:19→17:19)
[2021-08-21] MEDS: *HR* Enoxaparin 100 MG/ML SYRINGE SQ SCH (08:19)
[2021-08-21] MEDS: ELDERBERRY PO SCH (08:20)
[2021-08-21 08:23] LABS: BUN/Creatinine Ratio 28 (6-26); Blood Urea Nitrogen 20 mg/dL (6-20); Calcium 8.1 mg/dL (8.6-10.3); Carbon Dioxide 29 mEq/L (23-29); Chloride 101 mEq/L (98-107); Glucose 113 mg/dL (70-105); Osmolality,Calculated 283 (280-300); Sodium 135 mEq/L (136-145); eGFR For African Americans > 60 (> 60); eGFR For Non-African Americans > 60 (> 60)
[2021-08-21 08:31] LABS: Platelet Estimate Slight Decrease (Normal)
[2021-08-21] MEDS ORDERED: NON-FORMULARY MEDICATION 1 EACH EACH PO SCH (21:00)
[2021-08-22] MEDS: Acetaminophen 325 MG TABLET PO PRN ×2 (02:27→19:38)
[2021-08-22] MEDS: Levalbuterol 1 PUFF INHALER IH SCH ×6 (03:49→23:15)
[2021-08-22] MEDS: Ipratropium 1 PUFF INHALER IH SCH ×6 (03:49→23:15)
[2021-08-22 06:57] LABS: INR 2.2; Prothrombin Time 24.9 Seconds (9.4-12.1)
[2021-08-22] MEDS: polyethylene glycoL 3350 17 GM POWD.PACK PO SCH (07:34)
[2021-08-22] MEDS: Cholecalciferol (D-3) 1,000 UNIT (25MCG) TABLET PO SCH (07:34)
[2021-08-22] MEDS: Ascorbic Acid 500 MG TABLET PO SCH (07:34)
[2021-08-22] MEDS: ELDERBERRY PO SCH (07:35)
[2021-08-22] MEDS: [UNRECOGNIZED DRUG - OTHER] PO SCH (07:42)
[2021-08-22] MEDS: carvediloL 6.25 MG TABLET PO SCH ×2 (07:42→17:25)
[2021-08-22] MEDS ORDERED: Levalbuterol Neb 1.25 MG/3 ML IH PRN (10:06)
[2021-08-22] MEDS ORDERED: Acetylcysteine 10% 2 ML INHSOL IH ONE (11:00)
[2021-08-22] MEDS: cefTRIAXone 1,000 MG in Water for inj. (sterile) 10 ML IVP SCH (13:14)
[2021-08-22 13:29] LABS: Basophils % 0.3 %; Eosinophils % 1.5 %; Mean Platelet Volume 10.9 fL (9.4-12.4); Red Cell Distribution Width 12.1 % (11.5-14.5)
[2021-08-22 13:31] LABS: Eosinophils # 0.2 K/mcL (0.0-0.6); Hematocrit 40.9 % (37.5-50.1); Hemoglobin 13.5 g/dL (12.9-16.9); Immature Granulocytes % 2.2 % (0-4); Immature Platelets 4.5 % (1.1-6.1); Lymphocytes # 0.4 K/mcL (0.6-4.6); Lymphocytes % 3.5 %; Mean Corpuscular Hemoglobin 31.3 pg (28.0-33.3); Mean Corpuscular Volume 94.9 fL (83.0-100.0); Monocytes # 0.7 K/mcL (0.0-1.3); Monocytes % 5.8 %; Platelet Count 128 K/mcL (140-400); Red Blood Count 4.31 M/mcL (4.19-5.50); Segmented Neutrophils % 86.7 %; White Blood Count 11.5 K/mcL (4.3-11.1)
[2021-08-22] MEDS ORDERED: *HR* Warfarin 2.5 MG TABLET PO ONE (18:00)
[2021-08-23] MEDS: *HR* LORazepam 2 MG/ML VIAL IVP PRN ×2 (02:38→11:00)
[2021-08-23] MEDS: Acetaminophen 325 MG TABLET PO PRN (02:38)
[2021-08-23 02:47] LABS: Mean Platelet Volume 11.1 fL (9.4-12.4)
[2021-08-23 02:49] LABS: Hematocrit 42.3 % (37.5-50.1); Hemoglobin 13.7 g/dL (12.9-16.9); Mean Corpuscular HGB Conc 32.4 g/dL (31.6-35.5); Mean Corpuscular Hemoglobin 31.3 pg (28.0-33.3); Mean Corpuscular Volume 96.6 fL (83.0-100.0); Red Blood Count 4.38 M/mcL (4.19-5.50); Red Cell Distribution Width 12.2 % (11.5-14.5); White Blood Count 9.9 K/mcL (4.3-11.1)
[2021-08-23 03:05] LABS: BUN/Creatinine Ratio 25 (6-26); Blood Urea Nitrogen 19 mg/dL (6-20); Calcium 8.6 mg/dL (8.6-10.3); Carbon Dioxide 28 mEq/L (23-29); Chloride 102 mEq/L (98-107); Glucose 111 mg/dL (70-105); Magnesium 2.2 mg/dL (1.6-2.6); Osmolality,Calculated 283 (280-300); Phosphorous 2.7 mg/dL (2.7-4.5); Potassium 4.6 mEq/L (3.5-5.1); Sodium 135 mEq/L (136-145); eGFR For African Americans > 60 (> 60); eGFR For Non-African Americans > 60 (> 60)
[2021-08-23] MEDS: Ipratropium 1 PUFF INHALER IH SCH ×2 (04:08→07:37)
[2021-08-23] MEDS: Levalbuterol 1 PUFF INHALER IH SCH ×2 (04:08→07:36)
[2021-08-23] MEDS ORDERED: Ketorolac 15 MG/ML VIAL IVP ONE (04:45)
[2021-08-23] MEDS: cefTRIAXone 1,000 MG in Water for inj. (sterile) 10 ML IVP SCH (08:50)
[2021-08-23] MEDS: polyethylene glycoL 3350 17 GM POWD.PACK PO SCH (08:50)
[2021-08-23] MEDS: Cholecalciferol (D-3) 1,000 UNIT (25MCG) TABLET PO SCH (08:51)
[2021-08-23] MEDS: [UNRECOGNIZED DRUG - OTHER] PO SCH (08:51)
[2021-08-23] MEDS: Ascorbic Acid 500 MG TABLET PO SCH (08:51)
[2021-08-23] MEDS: ELDERBERRY PO SCH (08:51)
[2021-08-23] MEDS: carvediloL 6.25 MG TABLET PO SCH (08:51)
[2021-08-23] MEDS: Levalbuterol Neb 1.25 MG/3 ML IH SCH ×3 (11:08→21:34)
[2021-08-23] MEDS: Acetylcysteine 10% 2 ML INHSOL IH SCH ×2 (11:08→15:31)
[2021-08-23] MEDS: Dexmedetomidine HCl 400 MCG/100 ML MLS IVC SCH (14:32)
[2021-08-23] MEDS ORDERED: *HR* Etomidate 20 MG/10 ML AMPUL IVP ONE (14:47)
[2021-08-23] MEDS ORDERED: *HR* Midazolam HCl 5 MG/5 ML VIAL IVP ONE (14:47)
[2021-08-23] MEDS ORDERED: *HR* Rocuronium Bromide 50 MG/5 ML VIAL IVP ONE (14:47)
[2021-08-23] MEDS ORDERED: Morphine Sulfate 2 MG/ML SYRINGE IVP ONE (15:17)
[2021-08-23] MEDS ORDERED: Lidocaine -MPF 1% 5 ML AMPUL INFILT ONE (15:26)
[2021-08-23 15:30] LABS: ABG Base Excess 2 mEq/L (-2 to 3); ABG HCO3 26 mEq/L (21-27); ABG Oxygen Saturation 73 % (95-98); ABG PCO2 39 mmHg (35-45); ABG PH 7.44 pH Units (7.32-7.45); ABG PO2 37 mmHg (85-104); ABG TCO2 27 mEq/L (20-26)
[2021-08-23] MEDS ORDERED: Artificial Tears SOLN 15 ML BOTTLE BOTH EYES PRN (15:39)
[2021-08-23] MEDS: Midazolam HCl 50 MG/100 ML IV.SOLN IVC SCH ×2 (16:45→22:58)
[2021-08-23] MEDS: Cisatracurium 200 MG in 0.9 % Sodium Chloride 180 ML IVC SCH (16:45)
[2021-08-23] MEDS: FentaNYL (PF) 1,000 MCG/100 ML IV.SOLN IVC SCH ×2 (16:45→22:27)
[2021-08-23] MEDS ORDERED: 0.9 % Sodium Chloride 1,000 ML ONE (16:55)
[2021-08-23] MEDS: Pantoprazole 40 MG VIAL IVP SCH (17:47)
[2021-08-23] MEDS ORDERED: *HR* Metoprolol 5 MG/5 ML VIAL IVP ONE (17:53)
[2021-08-23] MEDS: *HR* Metoprolol 5 MG/5 ML VIAL IVP PRN (17:55)
[2021-08-23] MEDS ORDERED: *HR* Warfarin 5 MG TABLET PO ONE (18:00)
[2021-08-23 18:07] LABS: ABG Base Excess 2 mEq/L (-2 to 3); ABG HCO3 31 mEq/L (21-27); ABG Oxygen Saturation 88 % (95-98); ABG PCO2 71 mmHg (35-45); ABG PH 7.25 pH Units (7.32-7.45); ABG PO2 65 mmHg (85-104); ABG TCO2 33 mEq/L (20-26); Blood Gas VT 450 cc
[2021-08-23] MEDS: Norepinephrine 4 MG/254 ML IV.SOLN IVC SCH (18:40)
[2021-08-23] MEDS: Artificial Tears SOLN 15 ML BOTTLE BOTH EYES SCH ×3 (18:50→23:43)
[2021-08-23] MEDS: Phenylephrine 10 MG in 0.9 % Sodium Chloride 250 ML IVC SCH ×2 (19:00→21:58)
[2021-08-23] MEDS ORDERED: polyethylene glycoL 3350 17 GM POWD.PACK PO SCH (21:00)
[2021-08-23 21:03] LABS: ABG Base Excess -1 mEq/L (-2 to 3); ABG HCO3 25 mEq/L (21-27); ABG Oxygen Saturation 76 % (95-98); ABG PCO2 50 mmHg (35-45); ABG PH 7.31 pH Units (7.32-7.45); ABG PO2 45 mmHg (85-104); ABG TCO2 27 mEq/L (20-26); Blood Gas VT 450 cc
[2021-08-23] MEDS: Budesonide/Formoterol 160/4.5 1 PUFF INH IH SCH (21:34)
[2021-08-23] MEDS: Chlorhexidine Rinse 15 ML MOUTHWASH MM SCH (22:05)
[2021-08-24] MEDS: *HR* Metoprolol 5 MG/5 ML VIAL IVP PRN (02:18)
[2021-08-24 03:47] LABS: VBG Ionized Calcium 1.17 mmol/L (1.15-1.35)
[2021-08-24] MEDS: Acetaminophen 325 MG TABLET PO PRN (03:58)
[2021-08-24] MEDS: Cisatracurium 200 MG in 0.9 % Sodium Chloride 180 ML IVC SCH ×2 (03:58→18:25)
[2021-08-24 04:00] LABS: Basophils % 0.4 %; Eosinophils # 0.2 K/mcL (0.0-0.6); Eosinophils % 1.7 %; Hematocrit 40.3 % (37.5-50.1); Hemoglobin 12.8 g/dL (12.9-16.9); Immature Granulocytes % 1.7 % (0-4); Lymphocytes # 0.7 K/mcL (0.6-4.6); Lymphocytes % 6.3 %; Mean Corpuscular HGB Conc 31.8 g/dL (31.6-35.5); Mean Corpuscular Hemoglobin 31.3 pg (28.0-33.3); Mean Corpuscular Volume 98.5 fL (83.0-100.0); Mean Platelet Volume 10.9 fL (9.4-12.4); Monocytes # 0.7 K/mcL (0.0-1.3); Monocytes % 6.6 %; Neutrophils # 9.1 K/mcL (1.6-8.9); Platelet Count 106 K/mcL (140-400); Red Blood Count 4.09 M/mcL (4.19-5.50); Red Cell Distribution Width 12.3 % (11.5-14.5); Segmented Neutrophils % 83.3 %; White Blood Count 10.9 K/mcL (4.3-11.1)
[2021-08-24 04:14] LABS: Alanine Aminotransferase 101 Units/L (7-52); Albumin/Globulin Ratio 0.8 (1.1-2.2); Alkaline Phosphatase 95 Units/L (34-104); Aspartate Amino Transferase 62 Units/L (13-39); BUN/Creatinine Ratio 37 (6-26); Bilirubin,Direct 0.4 mg/dL (0.0-0.2); Bilirubin,Indirect 0.4 mg/dL (0.0-1.0); Bilirubin,Total 0.8 mg/dL (0.3-1.0); Blood Urea Nitrogen 25 mg/dL (6-20); Calcium 8.3 mg/dL (8.6-10.3); Carbon Dioxide 27 mEq/L (23-29); Chloride 105 mEq/L (98-107); Glucose 107 mg/dL (70-105); Magnesium 2.3 mg/dL (1.6-2.6); Osmolality,Calculated 291 (280-300); Phosphorous 3.5 mg/dL (2.7-4.5); Potassium 4.9 mEq/L (3.5-5.1); Sodium 138 mEq/L (136-145); eGFR For African Americans > 60 (> 60); eGFR For Non-African Americans > 60 (> 60)
[2021-08-24] MEDS: Levalbuterol Neb 1.25 MG/3 ML IH SCH ×4 (04:30→21:36)
[2021-08-24] MEDS: FentaNYL (PF) 1,000 MCG/100 ML IV.SOLN IVC SCH ×4 (04:31→21:00)
[2021-08-24] MEDS: Artificial Tears SOLN 15 ML BOTTLE BOTH EYES SCH ×6 (04:32→23:45)
[2021-08-24 04:33] LABS: INR 2.1; Prothrombin Time 23.2 Seconds (9.4-12.1)
[2021-08-24] MEDS: Midazolam HCl 50 MG/100 ML IV.SOLN IVC SCH ×4 (04:47→20:35)
[2021-08-24 05:02] LABS: ABG Base Excess 1 mEq/L (-2 to 3); ABG HCO3 29 mEq/L (21-27); ABG Oxygen Saturation 90 % (95-98); ABG PCO2 64 mmHg (35-45); ABG PH 7.27 pH Units (7.32-7.45); ABG PO2 69 mmHg (85-104); ABG TCO2 31 mEq/L (20-26); Blood Gas Modality ASSIST CONTROL; Blood Gas VT 450 cc
[2021-08-24] MEDS ORDERED: Ringers Solution, Lactated 1,000 ML ONE (05:08)
[2021-08-24] MEDS ORDERED: Ringers Solution, Lactated 1,000 ML IVC SCH (05:15)
[2021-08-24] MEDS ORDERED: *HR* Heparin 5,000 UNIT/ML VIAL IVP ONE (05:25)
[2021-08-24] MEDS ORDERED: *HR* Heparin 5,000 UNIT/ML VIAL IVP PRN ×2 (05:25)
[2021-08-24] MEDS: Norepinephrine 4 MG/254 ML IV.SOLN IVC SCH ×2 (06:35→19:50)
[2021-08-24] MEDS: Heparin 25,000UNIT/250ML 1/2NS 25,000 UNIT/250 ML IV.SOLN IVC SCH (06:37)
[2021-08-24] MEDS ORDERED: Furosemide 20 MG/2 ML VIAL IVP ONE (07:35)
[2021-08-24] MEDS ORDERED: Perflutren Lipid Microsphere 1.3 ML in 0.9 % Sodium Chloride 8.7 ML IVP PRN (07:36)
[2021-08-24] MEDS: Budesonide/Formoterol 160/4.5 1 PUFF INH IH SCH ×2 (07:52→21:36)
[2021-08-24] MEDS: Phenylephrine 10 MG in 0.9 % Sodium Chloride 250 ML IVC SCH (08:05)
[2021-08-24 09:03] LABS: Bacteria,Urine Few per hpf (None-Few); Bilirubin,Urine Negative (Negative); Blood,Urine Moderate (Negative); Clarity,Urine Turbid (Clear); Color,Urine Yellow (Yellow); Glucose,Urine (UA) Normal (Normal); Granular Casts,Urine Few per lpf (None Seen); Hyaline Casts,Urine Few per lpf (None Seen); Ketones,Urine Negative (Negative); Leukocyte Esterase,Urine Negative (Negative); Mucus,Urine Many per lpf (None-Few); Nitrite,Urine Negative (Negative); Protein,Urine 70 mg/dL (Neg-Trace); RBC,Urine TNTC per hpf (0-3); Specific Gravity,Urine > 1.030 (1.010-1.025); Squamous Epithelial Cell,Urine Few per hpf (None-Few)
[2021-08-24] MEDS ORDERED: Albumin Human 5% 12.5 GM/250 ML IV.SOLN ONE (09:35)
[2021-08-24] MEDS: Albumin Human 5% 12.5 GM/250 ML IV.SOLN IVC SCH ×2 (09:45→10:12)
[2021-08-24] MEDS: [UNRECOGNIZED DRUG - OTHER] PO SCH (10:16)
[2021-08-24] MEDS: ELDERBERRY PO SCH (10:16)
[2021-08-24] MEDS: Phenylephrine 100 MG in 0.9 % Sodium Chloride 500 ML IVC SCH (11:48)
[2021-08-24] MEDS: cefTRIAXone 1,000 MG in Water for inj. (sterile) 10 ML IVP SCH (12:04)
[2021-08-24] MEDS: Ascorbic Acid 500 MG TABLET PO SCH (12:04)
[2021-08-24] MEDS: Cholecalciferol (D-3) 1,000 UNIT (25MCG) TABLET PO SCH (12:04)
[2021-08-24] MEDS: Pantoprazole 40 MG VIAL IVP SCH (12:04)
[2021-08-24] MEDS: Chlorhexidine Rinse 15 ML MOUTHWASH MM SCH ×2 (17:07→20:59)
[2021-08-24] MEDS: Dexmedetomidine HCl 400 MCG/100 ML MLS IVC SCH (19:50)
[2021-08-24] MEDS ORDERED: D5% in Water 1,000 ML IVC PRN (20:11)
[2021-08-24] MEDS ORDERED: Dextrose Gel 15 GM/37.5 ML TUBE PO PRN ×2 (20:11)
[2021-08-24] MEDS ORDERED: *HR* Dextrose 50 % in Water (Syg) 50 ML SYRINGE IVP PRN (20:11)
[2021-08-25] MEDS: *HR* Metoprolol 5 MG/5 ML VIAL IVP PRN ×4 (01:51→20:09)
[2021-08-25] MEDS: Phenylephrine 100 MG in 0.9 % Sodium Chloride 500 ML IVC SCH (01:52)
[2021-08-25] MEDS: Midazolam HCl 50 MG/100 ML IV.SOLN IVC SCH ×5 (01:52→21:41)
[2021-08-25] MEDS: Heparin 25,000UNIT/250ML 1/2NS 25,000 UNIT/250 ML IV.SOLN IVC SCH ×2 (01:54→19:55)
[2021-08-25] MEDS: FentaNYL (PF) 1,000 MCG/100 ML IV.SOLN IVC SCH ×5 (02:09→21:39)
[2021-08-25] MEDS: Artificial Tears SOLN 15 ML BOTTLE BOTH EYES SCH ×6 (03:38→23:47)
[2021-08-25] MEDS: Levalbuterol Neb 1.25 MG/3 ML IH SCH ×4 (04:00→20:46)
[2021-08-25 04:38] LABS: ABG Base Excess 1 mEq/L (-2 to 3); ABG HCO3 28 mEq/L (21-27); ABG Oxygen Saturation 92 % (95-98); ABG PCO2 56 mmHg (35-45); ABG PH 7.31 pH Units (7.32-7.45); ABG PO2 70 mmHg (85-104); ABG TCO2 30 mEq/L (20-26); Blood Gas VT 450 cc
[2021-08-25 05:06] LABS: Basophils # 0.1 K/mcL (0.0-0.2); Basophils % 0.4 %; Eosinophils # 0.5 K/mcL (0.0-0.6); Eosinophils % 4.4 %; Hematocrit 36.1 % (37.5-50.1); Lymphocytes # 0.5 K/mcL (0.6-4.6); Lymphocytes % 4.7 %; Mean Corpuscular HGB Conc 30.5 g/dL (31.6-35.5); Mean Corpuscular Volume 101.7 fL (83.0-100.0); Mean Platelet Volume 10.7 fL (9.4-12.4); Monocytes # 0.7 K/mcL (0.0-1.3); Monocytes % 6.5 %; Neutrophils # 9.3 K/mcL (1.6-8.9); Platelet Count 121 K/mcL (140-400); Red Blood Count 3.55 M/mcL (4.19-5.50); Red Cell Distribution Width 12.5 % (11.5-14.5); White Blood Count 11.3 K/mcL (4.3-11.1)
[2021-08-25 05:22] LABS: Alanine Aminotransferase 69 Units/L (7-52); Albumin/Globulin Ratio 0.8 (1.1-2.2); Alkaline Phosphatase 89 Units/L (34-104); Aspartate Amino Transferase 45 Units/L (13-39); BUN/Creatinine Ratio 31 (6-26); Bilirubin,Direct 0.3 mg/dL (0.0-0.2); Bilirubin,Indirect 0.4 mg/dL (0.0-1.0); Bilirubin,Total 0.7 mg/dL (0.3-1.0); Blood Urea Nitrogen 20 mg/dL (6-20); Calcium 8.4 mg/dL (8.6-10.3); Carbon Dioxide 31 mEq/L (23-29); Chloride 105 mEq/L (98-107); Globulin 3.6 g/dL (2.4-3.5); Glucose 108 mg/dL (70-105); Magnesium 2.4 mg/dL (1.6-2.6); Osmolality,Calculated 295 (280-300); Phosphorous 2.1 mg/dL (2.7-4.5); Potassium 4.8 mEq/L (3.5-5.1); Sodium 141 mEq/L (136-145); Total Protein 6.6 g/dL (6.4-8.9); eGFR For African Americans > 60 (> 60); eGFR For Non-African Americans > 60 (> 60)
[2021-08-25] MEDS: Budesonide/Formoterol 160/4.5 1 PUFF INH IH SCH ×2 (07:33→20:45)
[2021-08-25] MEDS: Chlorhexidine Rinse 15 ML MOUTHWASH MM SCH ×2 (08:09→20:09)
[2021-08-25] MEDS: Pantoprazole 40 MG VIAL IVP SCH (08:09)
[2021-08-25] MEDS: Cholecalciferol (D-3) 1,000 UNIT (25MCG) TABLET PO SCH (08:09)
[2021-08-25] MEDS: Ascorbic Acid 500 MG TABLET PO SCH (08:10)
[2021-08-25] MEDS: Cisatracurium 200 MG in 0.9 % Sodium Chloride 180 ML IVC SCH ×2 (08:13→21:40)
[2021-08-25] MEDS: MetroNIDAZOLE 500 MG/100 ML 500 MG/100 ML BAG IVPB SCH ×2 (17:33→23:50)
[2021-08-25] MEDS: Cefepime HCl 2,000 MG in 0.9 % Sodium Chloride Mini Bag 100 ML IVPB SCH (17:34)
[2021-08-25] MEDS: [UNRECOGNIZED DRUG - OTHER] PO SCH (17:35)
[2021-08-25] MEDS: ELDERBERRY PO SCH (17:35)
[2021-08-25] MEDS: Norepinephrine 4 MG/254 ML IV.SOLN IVC SCH ×2 (17:35→20:02)
[2021-08-25] MEDS: Dexmedetomidine HCl 400 MCG/100 ML MLS IVC SCH (17:36)
[2021-08-25 22:45] LABS: ABG Base Excess 4 mEq/L (-2 to 3); ABG HCO3 30 mEq/L (21-27); ABG Oxygen Saturation 81 % (95-98); ABG PCO2 52 mmHg (35-45); ABG PH 7.38 pH Units (7.32-7.45); ABG PO2 47 mmHg (85-104); ABG TCO2 32 mEq/L (20-26); Blood Gas VT 450 cc
[2021-08-25 23:12] LABS: ABG Base Excess 2 mEq/L (-2 to 3); ABG HCO3 31 mEq/L (21-27); ABG Oxygen Saturation 80 % (95-98); ABG PCO2 66 mmHg (35-45); ABG PH 7.27 pH Units (7.32-7.45); ABG PO2 52 mmHg (85-104); ABG TCO2 33 mEq/L (20-26); Blood Gas VT 450 cc
[2021-08-26] MEDS: FentaNYL (PF) 1,000 MCG/100 ML IV.SOLN IVC SCH ×5 (02:30→23:30)
[2021-08-26] MEDS: Midazolam HCl 50 MG/100 ML IV.SOLN IVC SCH ×5 (02:50→23:28)
[2021-08-26] MEDS: Levalbuterol Neb 1.25 MG/3 ML IH SCH ×4 (03:30→20:21)
[2021-08-26] MEDS: Dexmedetomidine HCl 400 MCG/100 ML MLS IVC SCH ×2 (03:39→23:32)
[2021-08-26] MEDS: Artificial Tears SOLN 15 ML BOTTLE BOTH EYES SCH ×6 (03:42→23:26)
[2021-08-26 04:40] LABS: VBG Ionized Calcium 1.16 mmol/L (1.15-1.35)
[2021-08-26 04:49] LABS: Basophils % 0.5 %; Eosinophils # 0.2 K/mcL (0.0-0.6); Eosinophils % 2.6 %; Hematocrit 31.5 % (37.5-50.1); Hemoglobin 9.8 g/dL (12.9-16.9); Lymphocytes # 0.5 K/mcL (0.6-4.6); Lymphocytes % 8.1 %; Mean Corpuscular HGB Conc 31.1 g/dL (31.6-35.5); Mean Corpuscular Hemoglobin 31.8 pg (28.0-33.3); Mean Corpuscular Volume 102.3 fL (83.0-100.0); Mean Platelet Volume 11.8 fL (9.4-12.4); Monocytes # 0.5 K/mcL (0.0-1.3); Monocytes % 7.2 %; Red Blood Count 3.08 M/mcL (4.19-5.50); Red Cell Distribution Width 12.7 % (11.5-14.5); Segmented Neutrophils % 78.6 %; White Blood Count 6.7 K/mcL (4.3-11.1)
[2021-08-26 04:51] LABS: Neutrophils # 5.3 K/mcL (1.6-8.9); Platelet Count 92 K/mcL (140-400)
[2021-08-26 05:08] LABS: Alanine Aminotransferase 69 Units/L (7-52); Albumin 2.6 g/dL (3.5-5.7); Albumin/Globulin Ratio 0.8 (1.1-2.2); Alkaline Phosphatase 77 Units/L (34-104); Aspartate Amino Transferase 80 Units/L (13-39); BUN/Creatinine Ratio 43 (6-26); Bilirubin,Direct 0.3 mg/dL (0.0-0.2); Bilirubin,Indirect 0.3 mg/dL (0.0-1.0); Bilirubin,Total 0.6 mg/dL (0.3-1.0); Blood Urea Nitrogen 26 mg/dL (6-20); Calcium 8.1 mg/dL (8.6-10.3); Carbon Dioxide 31 mEq/L (23-29); Chloride 108 mEq/L (98-107); Globulin 3.4 g/dL (2.4-3.5); Glucose 124 mg/dL (70-105); Magnesium 2.4 mg/dL (1.6-2.6); Osmolality,Calculated 304 (280-300); Phosphorous 1.8 mg/dL (2.7-4.5); Potassium 4.5 mEq/L (3.5-5.1); Sodium 144 mEq/L (136-145); eGFR For African Americans > 60 (> 60); eGFR For Non-African Americans > 60 (> 60)
[2021-08-26 05:09] LABS: ABG Base Excess 3 mEq/L (-2 to 3); ABG HCO3 29 mEq/L (21-27); ABG Oxygen Saturation 87 % (95-98); ABG PCO2 49 mmHg (35-45); ABG PH 7.37 pH Units (7.32-7.45); ABG PO2 55 mmHg (85-104); ABG TCO2 30 mEq/L (20-26); Blood Gas VT 450 cc
[2021-08-26] MEDS: Cefepime HCl 2,000 MG in 0.9 % Sodium Chloride Mini Bag 100 ML IVPB SCH ×2 (06:04→16:59)
[2021-08-26] MEDS: Budesonide/Formoterol 160/4.5 1 PUFF INH IH SCH ×2 (07:49→20:21)
[2021-08-26] MEDS: MetroNIDAZOLE 500 MG/100 ML 500 MG/100 ML BAG IVPB SCH ×3 (08:38→23:29)
[2021-08-26] MEDS: Chlorhexidine Rinse 15 ML MOUTHWASH MM SCH ×2 (08:39→19:35)
[2021-08-26] MEDS: Pantoprazole 40 MG VIAL IVP SCH (08:39)
[2021-08-26] MEDS: ELDERBERRY PO SCH (08:46)
[2021-08-26] MEDS: Ascorbic Acid 500 MG TABLET PO SCH (08:46)
[2021-08-26] MEDS: Cholecalciferol (D-3) 1,000 UNIT (25MCG) TABLET PO SCH (08:46)
[2021-08-26] MEDS: [UNRECOGNIZED DRUG - OTHER] PO SCH (08:46)
[2021-08-26] MEDS: Cisatracurium 200 MG in 0.9 % Sodium Chloride 180 ML IVC SCH ×2 (10:40→21:11)
[2021-08-26] MEDS: Heparin 25,000UNIT/250ML 1/2NS 25,000 UNIT/250 ML IV.SOLN IVC SCH (10:40)
[2021-08-26] MEDS: Phenylephrine 100 MG in 0.9 % Sodium Chloride 500 ML IVC SCH (11:01)
[2021-08-26] MEDS: Norepinephrine 4 MG/254 ML IV.SOLN IVC SCH ×2 (11:02→23:25)
[2021-08-26] MEDS: Docusate Oral Soln 100 MG/10 ML UDC GTUBE SCH ×2 (11:57→19:38)
[2021-08-26] MEDS: Argatroban 250 MG in 0.9 % Sodium Chloride 250 ML IVC SCH (17:10)
[2021-08-26] MEDS: *HR* Metoprolol 5 MG/5 ML VIAL IVP PRN (21:11)
[2021-08-27] MEDS: Artificial Tears SOLN 15 ML BOTTLE BOTH EYES SCH ×5 (03:14→20:59)
[2021-08-27] MEDS: Levalbuterol Neb 1.25 MG/3 ML IH SCH ×4 (04:12→20:16)
[2021-08-27 04:27] LABS: Nucleated Red Blood Cells 0.4 /100 WBC (0); Red Cell Distribution Width 12.6 % (11.5-14.5)
[2021-08-27 04:29] LABS: Basophils % 0.6 %; Eosinophils # 0.3 K/mcL (0.0-0.6); Eosinophils % 6.5 %; Hematocrit 30.4 % (37.5-50.1); Hemoglobin 9.2 g/dL (12.9-16.9); Immature Granulocytes % 5.4 % (0-4); Immature Platelets 5.2 % (1.1-6.1); Lymphocytes # 0.5 K/mcL (0.6-4.6); Lymphocytes % 8.8 %; Mean Corpuscular HGB Conc 30.3 g/dL (31.6-35.5); Mean Corpuscular Hemoglobin 31.5 pg (28.0-33.3); Mean Corpuscular Volume 104.1 fL (83.0-100.0); Mean Platelet Volume 11.2 fL (9.4-12.4); Monocytes # 0.4 K/mcL (0.0-1.3); Neutrophils # 3.7 K/mcL (1.6-8.9); Platelet Count 101 K/mcL (140-400); Red Blood Count 2.92 M/mcL (4.19-5.50); Segmented Neutrophils % 70.7 %; White Blood Count 5.2 K/mcL (4.3-11.1)
[2021-08-27] MEDS: FentaNYL (PF) 1,000 MCG/100 ML IV.SOLN IVC SCH ×4 (04:30→20:30)
[2021-08-27] MEDS: Midazolam HCl 50 MG/100 ML IV.SOLN IVC SCH ×4 (04:30→21:10)
[2021-08-27 04:46] LABS: Alanine Aminotransferase 50 Units/L (7-52); Albumin 2.4 g/dL (3.5-5.7); Albumin/Globulin Ratio 0.8 (1.1-2.2); Alkaline Phosphatase 70 Units/L (34-104); Aspartate Amino Transferase 47 Units/L (13-39); BUN/Creatinine Ratio 44 (6-26); Bilirubin,Direct 0.2 mg/dL (0.0-0.2); Bilirubin,Indirect 0.3 mg/dL (0.0-1.0); Bilirubin,Total 0.5 mg/dL (0.3-1.0); Blood Urea Nitrogen 23 mg/dL (6-20); Calcium 7.9 mg/dL (8.6-10.3); Carbon Dioxide 38 mEq/L (23-29); Chloride 111 mEq/L (98-107); Globulin 3.1 g/dL (2.4-3.5); Glucose 97 mg/dL (70-105); Magnesium 2.4 mg/dL (1.6-2.6); Osmolality,Calculated 312 (280-300); Phosphorous 1.8 mg/dL (2.7-4.5); Potassium 4.4 mEq/L (3.5-5.1); Sodium 149 mEq/L (136-145); Total Protein 5.5 g/dL (6.4-8.9); eGFR For African Americans > 60 (> 60); eGFR For Non-African Americans > 60 (> 60)
[2021-08-27] MEDS: Cefepime HCl 2,000 MG in 0.9 % Sodium Chloride Mini Bag 100 ML IVPB SCH (05:41)
[2021-08-27 05:43] LABS: ABG Base Excess 9 mEq/L (-2 to 3); ABG HCO3 36 mEq/L (21-27); ABG Oxygen Saturation 84 % (95-98); ABG PCO2 64 mmHg (35-45); ABG PH 7.36 pH Units (7.32-7.45); ABG PO2 53 mmHg (85-104); ABG TCO2 38 mEq/L (20-26); Blood Gas VT 450 cc
[2021-08-27] MEDS: Cisatracurium 200 MG in 0.9 % Sodium Chloride 180 ML IVC SCH ×2 (06:25→17:45)
[2021-08-27] MEDS: Chlorhexidine Rinse 15 ML MOUTHWASH MM SCH ×2 (08:21→21:25)
[2021-08-27] MEDS: MetroNIDAZOLE 500 MG/100 ML 500 MG/100 ML BAG IVPB SCH ×2 (08:21→16:35)
[2021-08-27] MEDS: Pantoprazole 40 MG VIAL IVP SCH (08:22)
[2021-08-27] MEDS: Cholecalciferol (D-3) 1,000 UNIT (25MCG) TABLET PO SCH (08:22)
[2021-08-27] MEDS: ELDERBERRY PO SCH (08:22)
[2021-08-27] MEDS: Docusate Oral Soln 100 MG/10 ML UDC GTUBE SCH ×2 (08:22→21:25)
[2021-08-27] MEDS: [UNRECOGNIZED DRUG - OTHER] PO SCH (08:22)
[2021-08-27] MEDS: Ascorbic Acid 500 MG TABLET PO SCH (08:23)
[2021-08-27] MEDS: Budesonide/Formoterol 160/4.5 1 PUFF INH IH SCH ×2 (09:04→20:16)
[2021-08-27] MEDS ORDERED: SODIUM PHOSPHATE IVPB ONE (16:00)
[2021-08-27] MEDS ORDERED: D5 IVPB ONE (16:00)
[2021-08-27] MEDS ORDERED: WATER IVPB ONE (16:00)
[2021-08-27] MEDS: Cefepime HCl 2,000 MG in Water for inj. (sterile) 20 ML IVP SCH (16:36)
[2021-08-27] MEDS: Norepinephrine 4 MG/254 ML IV.SOLN IVC SCH (20:52)
[2021-08-27] MEDS: Phenylephrine 100 MG in 0.9 % Sodium Chloride 500 ML IVC SCH (20:52)
[2021-08-27] MEDS: Argatroban 250 MG in 0.9 % Sodium Chloride 250 ML IVC SCH (21:47)
[2021-08-28] MEDS: Artificial Tears SOLN 15 ML BOTTLE BOTH EYES SCH ×7 (00:15→23:41)
[2021-08-28] MEDS: Cefepime HCl 2,000 MG in Water for inj. (sterile) 20 ML IVP SCH ×4 (00:21→23:40)
[2021-08-28] MEDS: Norepinephrine 4 MG/254 ML IV.SOLN IVC SCH (00:25)
[2021-08-28] MEDS: MetroNIDAZOLE 500 MG/100 ML 500 MG/100 ML BAG IVPB SCH ×4 (00:25→23:41)
[2021-08-28] MEDS: Midazolam HCl 50 MG/100 ML IV.SOLN IVC SCH ×4 (00:30→18:59)
[2021-08-28] MEDS: FentaNYL (PF) 1,000 MCG/100 ML IV.SOLN IVC SCH ×5 (02:00→23:40)
[2021-08-28] MEDS: Cisatracurium 200 MG in 0.9 % Sodium Chloride 180 ML IVC SCH ×3 (03:20→21:35)
[2021-08-28] MEDS: Levalbuterol Neb 1.25 MG/3 ML IH SCH ×4 (03:51→21:17)
[2021-08-28 04:15] LABS: ABG Base Excess 7 mEq/L (-2 to 3); ABG HCO3 35 mEq/L (21-27); ABG Oxygen Saturation 88 % (95-98); ABG PCO2 69 mmHg (35-45); ABG PH 7.32 pH Units (7.32-7.45); ABG PO2 61 mmHg (85-104); ABG TCO2 37 mEq/L (20-26); Blood Gas VT 450 cc
[2021-08-28 04:33] LABS: Monocytes % 7.1 %; Red Cell Distribution Width 12.9 % (11.5-14.5)
[2021-08-28 04:35] LABS: Basophils # 0.1 K/mcL (0.0-0.2); Basophils % 1.6 %; Eosinophils # 0.3 K/mcL (0.0-0.6); Eosinophils % 8.6 %; Hematocrit 30.1 % (37.5-50.1); Immature Platelets 5.2 % (1.1-6.1); Lymphocytes # 0.3 K/mcL (0.6-4.6); Lymphocytes % 7.3 %; Mean Corpuscular HGB Conc 29.9 g/dL (31.6-35.5); Mean Corpuscular Hemoglobin 31.3 pg (28.0-33.3); Mean Corpuscular Volume 104.5 fL (83.0-100.0); Monocytes # 0.3 K/mcL (0.0-1.3); Neutrophils # 2.4 K/mcL (1.6-8.9); Nucleated Red Blood Cells 0.8 /100 WBC (0); Platelet Count 103 K/mcL (140-400); Red Blood Count 2.88 M/mcL (4.19-5.50); Segmented Neutrophils % 63.4 %; White Blood Count 3.8 K/mcL (4.3-11.1)
[2021-08-28 04:40] LABS: VBG Ionized Calcium 1.19 mmol/L (1.15-1.35)
[2021-08-28 04:52] LABS: Alanine Aminotransferase 40 Units/L (7-52); Albumin 2.2 g/dL (3.5-5.7); Albumin/Globulin Ratio 0.7 (1.1-2.2); Alkaline Phosphatase 60 Units/L (34-104); Aspartate Amino Transferase 35 Units/L (13-39); BUN/Creatinine Ratio 48 (6-26); Bilirubin,Direct 0.2 mg/dL (0.0-0.2); Bilirubin,Indirect 0.3 mg/dL (0.0-1.0); Bilirubin,Total 0.5 mg/dL (0.3-1.0); Blood Urea Nitrogen 24 mg/dL (6-20); Calcium 7.4 mg/dL (8.6-10.3); Carbon Dioxide 35 mEq/L (23-29); Chloride 113 mEq/L (98-107); Glucose 96 mg/dL (70-105); Magnesium 2.2 mg/dL (1.6-2.6); Osmolality,Calculated 314 (280-300); Phosphorous 2.4 mg/dL (2.7-4.5); Potassium 3.7 mEq/L (3.5-5.1); Sodium 150 mEq/L (136-145); Total Protein 5.2 g/dL (6.4-8.9); eGFR For African Americans > 60 (> 60); eGFR For Non-African Americans > 60 (> 60)
[2021-08-28] MEDS: Chlorhexidine Rinse 15 ML MOUTHWASH MM SCH ×2 (07:38→20:26)
[2021-08-28] MEDS: [UNRECOGNIZED DRUG - OTHER] PO SCH (07:38)
[2021-08-28] MEDS: Cholecalciferol (D-3) 1,000 UNIT (25MCG) TABLET PO SCH (07:38)
[2021-08-28] MEDS: ELDERBERRY PO SCH (07:38)
[2021-08-28] MEDS: Ascorbic Acid 500 MG TABLET PO SCH (07:38)
[2021-08-28] MEDS: Docusate Oral Soln 100 MG/10 ML UDC GTUBE SCH ×2 (07:38→20:26)
[2021-08-28] MEDS: Pantoprazole 40 MG VIAL IVP SCH (07:39)
[2021-08-28] MEDS: Budesonide/Formoterol 160/4.5 1 PUFF INH IH SCH ×2 (07:55→21:17)
[2021-08-28] MEDS ORDERED: acetaZOLAMIDE 500 MG in Water for inj. (sterile) 5 ML IVP ONE (12:20)
[2021-08-29] MEDS: Midazolam HCl 50 MG/100 ML IV.SOLN IVC SCH ×5 (01:10→19:55)
[2021-08-29] MEDS: Artificial Tears SOLN 15 ML BOTTLE BOTH EYES SCH ×6 (04:18→23:48)
[2021-08-29] MEDS: FentaNYL (PF) 1,000 MCG/100 ML IV.SOLN IVC SCH ×4 (04:18→19:30)
[2021-08-29 04:39] LABS: Hematocrit 36.8 % (37.5-50.1); Lymphocytes # 0.4 K/mcL (0.6-4.6); Mean Corpuscular HGB Conc 29.3 g/dL (31.6-35.5); Mean Corpuscular Hemoglobin 31.8 pg (28.0-33.3); Mean Corpuscular Volume 108.2 fL (83.0-100.0); Mean Platelet Volume 10.9 fL (9.4-12.4); Monocytes # 0.4 K/mcL (0.0-1.3); Nucleated Red Blood Cells 0.5 /100 WBC (0); Platelet Count 130 K/mcL (140-400); Red Cell Distribution Width 13.4 % (11.5-14.5)
[2021-08-29 04:41] LABS: ABG Base Excess 3 mEq/L (-2 to 3); ABG HCO3 34 mEq/L (21-27); ABG Oxygen Saturation 83 % (95-98); ABG PCO2 99 mmHg (35-45); ABG PH 7.14 pH Units (7.32-7.45); ABG PO2 64 mmHg (85-104); ABG TCO2 37 mEq/L (20-26); Blood Gas Modality ASSIST CONTROL; Blood Gas VT 450 cc
[2021-08-29] MEDS: Levalbuterol Neb 1.25 MG/3 ML IH SCH ×4 (04:46→21:52)
[2021-08-29 04:56] LABS: Hemoglobin 10.8 g/dL (12.9-16.9); White Blood Count 5.8 K/mcL (4.3-11.1)
[2021-08-29 04:57] LABS: VBG Ionized Calcium 1.24 mmol/L (1.15-1.35)
[2021-08-29 04:58] LABS: Alanine Aminotransferase 56 Units/L (7-52); Albumin 2.5 g/dL (3.5-5.7); Albumin/Globulin Ratio 0.7 (1.1-2.2); Alkaline Phosphatase 61 Units/L (34-104); Aspartate Amino Transferase 69 Units/L (13-39); BUN/Creatinine Ratio 49 (6-26); Bilirubin,Direct 0.2 mg/dL (0.0-0.2); Bilirubin,Indirect 0.4 mg/dL (0.0-1.0); Bilirubin,Total 0.6 mg/dL (0.3-1.0); Blood Urea Nitrogen 25 mg/dL (6-20); Calcium 7.8 mg/dL (8.6-10.3); Carbon Dioxide 34 mEq/L (23-29); Chloride 113 mEq/L (98-107); Globulin 3.7 g/dL (2.4-3.5); Glucose 102 mg/dL (70-105); Magnesium 2.2 mg/dL (1.6-2.6); Osmolality,Calculated 311 (280-300); Phosphorous 3.9 mg/dL (2.7-4.5); Potassium 4.3 mEq/L (3.5-5.1); Sodium 148 mEq/L (136-145); Total Protein 6.2 g/dL (6.4-8.9); eGFR For African Americans > 60 (> 60); eGFR For Non-African Americans > 60 (> 60)
[2021-08-29 05:12] LABS: Eosinophils # 0.1 K/mcL (0.0-0.6); Neutrophils # 4.6 K/mcL (1.6-8.9); Platelet Estimate Slight Decrease (Normal)
[2021-08-29] MEDS: Cisatracurium 200 MG in 0.9 % Sodium Chloride 180 ML IVC SCH ×3 (05:30→17:58)
[2021-08-29] MEDS: Docusate Oral Soln 100 MG/10 ML UDC GTUBE SCH ×2 (07:11→20:09)
[2021-08-29] MEDS: Ascorbic Acid 500 MG TABLET PO SCH (07:11)
[2021-08-29] MEDS: [UNRECOGNIZED DRUG - OTHER] PO SCH (07:11)
[2021-08-29] MEDS: Cholecalciferol (D-3) 1,000 UNIT (25MCG) TABLET PO SCH (07:11)
[2021-08-29] MEDS: ELDERBERRY PO SCH (07:11)
[2021-08-29] MEDS: MetroNIDAZOLE 500 MG/100 ML 500 MG/100 ML BAG IVPB SCH ×3 (07:17→23:51)
[2021-08-29] MEDS: Cefepime HCl 2,000 MG in Water for inj. (sterile) 20 ML IVP SCH ×3 (07:17→23:51)
[2021-08-29] MEDS: Pantoprazole 40 MG VIAL IVP SCH (07:18)
[2021-08-29] MEDS: Chlorhexidine Rinse 15 ML MOUTHWASH MM SCH ×2 (07:18→20:09)
[2021-08-29] MEDS: Budesonide/Formoterol 160/4.5 1 PUFF INH IH SCH ×2 (07:52→21:52)
[2021-08-29] MEDS ORDERED: Levalbuterol Neb 1.25 MG/3 ML ONE (08:30)
[2021-08-29 08:33] LABS: ABG Base Excess 4 mEq/L (-2 to 3); ABG HCO3 31 mEq/L (21-27); ABG Oxygen Saturation 85 % (95-98); ABG PCO2 65 mmHg (35-45); ABG PO2 57 mmHg (85-104); ABG TCO2 33 mEq/L (20-26); Blood Gas VT 450 cc
[2021-08-29 10:35] LABS: ABG Base Excess 4 mEq/L (-2 to 3); ABG HCO3 29 mEq/L (21-27); ABG Oxygen Saturation 88 % (95-98); ABG PCO2 43 mmHg (35-45); ABG PH 7.43 pH Units (7.32-7.45); ABG PO2 53 mmHg (85-104); ABG TCO2 30 mEq/L (20-26); Blood Gas VT 450 cc
[2021-08-29 11:03] LABS: Carboxyhemoglobin 2.9 % (0-5); Methemoglobin 2.4 % (0.4-1.5)
[2021-08-29] MEDS ORDERED: Levalbuterol Neb 1.25 MG/3 ML IH ONE (14:37)
[2021-08-30] MEDS: Cisatracurium 200 MG in 0.9 % Sodium Chloride 180 ML IVC SCH ×2 (00:14→06:47)
[2021-08-30] MEDS: Midazolam HCl 50 MG/100 ML IV.SOLN IVC SCH ×5 (00:20→21:30)
[2021-08-30] MEDS: FentaNYL (PF) 1,000 MCG/100 ML IV.SOLN IVC SCH ×5 (00:50→21:07)
[2021-08-30] MEDS: Levalbuterol Neb 1.25 MG/3 ML IH SCH ×4 (03:16→19:58)
[2021-08-30 03:37] LABS: VBG Ionized Calcium 1.18 mmol/L (1.15-1.35)
[2021-08-30 03:51] LABS: Alanine Aminotransferase 45 Units/L (7-52); Albumin 2.2 g/dL (3.5-5.7); Albumin/Globulin Ratio 0.7 (1.1-2.2); Alkaline Phosphatase 53 Units/L (34-104); Aspartate Amino Transferase 43 Units/L (13-39); BUN/Creatinine Ratio 48 (6-26); Bilirubin,Direct 0.1 mg/dL (0.0-0.2); Bilirubin,Indirect 0.4 mg/dL (0.0-1.0); Bilirubin,Total 0.5 mg/dL (0.3-1.0); Blood Urea Nitrogen 29 mg/dL (6-20); Calcium 7.8 mg/dL (8.6-10.3); Carbon Dioxide 31 mEq/L (23-29); Chloride 113 mEq/L (98-107); Glucose 140 mg/dL (70-105); Magnesium 2.1 mg/dL (1.6-2.6); Osmolality,Calculated 310 (280-300); Phosphorous 1.6 mg/dL (2.7-4.5); Potassium 3.7 mEq/L (3.5-5.1); Sodium 146 mEq/L (136-145); Total Protein 5.2 g/dL (6.4-8.9); eGFR For African Americans > 60 (> 60); eGFR For Non-African Americans > 60 (> 60)
[2021-08-30 04:02] LABS: Hematocrit 29.9 % (37.5-50.1); Hemoglobin 9.3 g/dL (12.9-16.9); Mean Corpuscular HGB Conc 31.1 g/dL (31.6-35.5); Mean Corpuscular Hemoglobin 31.6 pg (28.0-33.3); Mean Corpuscular Volume 101.7 fL (83.0-100.0); Mean Platelet Volume 10.8 fL (9.4-12.4); Nucleated Red Blood Cells 1.2 /100 WBC (0); Platelet Count 126 K/mcL (140-400); Red Blood Count 2.94 M/mcL (4.19-5.50); Red Cell Distribution Width 13.3 % (11.5-14.5); White Blood Count 5.1 K/mcL (4.3-11.1)
[2021-08-30 04:11] LABS: ABG Base Excess 3 mEq/L (-2 to 3); ABG HCO3 28 mEq/L (21-27); ABG Oxygen Saturation 85 % (95-98); ABG PCO2 43 mmHg (35-45); ABG PH 7.42 pH Units (7.32-7.45); ABG PO2 49 mmHg (85-104); ABG TCO2 29 mEq/L (20-26); Blood Gas Modality AF; Blood Gas VT 450 cc
[2021-08-30] MEDS: Artificial Tears SOLN 15 ML BOTTLE BOTH EYES SCH ×5 (04:16→20:38)
[2021-08-30 05:15] LABS: Anisocytosis 1+ (Not Present); Basophilic Stippling 1+ (Not Present); Eosinophils # 0.3 K/mcL (0.0-0.6); Lymphocytes # 0.4 K/mcL (0.6-4.6); Monocytes # 0.2 K/mcL (0.0-1.3); Platelet Estimate Normal (Normal); Polychromasia 1+ (Not Present)
[2021-08-30] MEDS: Budesonide/Formoterol 160/4.5 1 PUFF INH IH SCH ×2 (07:44→19:59)
[2021-08-30] MEDS: Cefepime HCl 2,000 MG in Water for inj. (sterile) 20 ML IVP SCH ×3 (07:59→23:47)
[2021-08-30] MEDS: Docusate Oral Soln 100 MG/10 ML UDC GTUBE SCH ×2 (08:00→20:37)
[2021-08-30] MEDS: MetroNIDAZOLE 500 MG/100 ML 500 MG/100 ML BAG IVPB SCH ×3 (08:00→23:48)
[2021-08-30] MEDS: Pantoprazole 40 MG VIAL IVP SCH (08:00)
[2021-08-30] MEDS: Cholecalciferol (D-3) 1,000 UNIT (25MCG) TABLET PO SCH (08:00)
[2021-08-30] MEDS: Ascorbic Acid 500 MG TABLET PO SCH (08:00)
[2021-08-30] MEDS: Chlorhexidine Rinse 15 ML MOUTHWASH MM SCH ×2 (08:00→20:37)
[2021-08-30] MEDS: [UNRECOGNIZED DRUG - OTHER] PO SCH (08:01)
[2021-08-30] MEDS: ELDERBERRY PO SCH (08:01)
[2021-08-30] MEDS ORDERED: Potassium Phosphate 44 MEQ in 0.9 % Sodium Chloride 250 ML IVPB PRN (09:57)
[2021-08-30 16:01] LABS: Blood Urea Nitrogen 27 mg/dL (6-20); Calcium 7.4 mg/dL (8.6-10.3); Carbon Dioxide 30 mEq/L (23-29); Chloride 112 mEq/L (98-107); Glucose 110 mg/dL (70-105); Osmolality,Calculated 306 (280-300); Potassium 4.2 mEq/L (3.5-5.1); Sodium 145 mEq/L (136-145)
[2021-08-30 16:19] LABS: BUN/Creatinine Ratio 51 (6-26); eGFR For African Americans > 60 (> 60); eGFR For Non-African Americans > 60 (> 60)
[2021-08-30] MEDS: Argatroban 250 MG in 0.9 % Sodium Chloride 250 ML IVC SCH (17:42)
[2021-08-30 23:21] LABS: Phosphorous 3.5 mg/dL (2.7-4.5); Potassium 4.2 mEq/L (3.5-5.1)
[2021-08-31] MEDS: Artificial Tears SOLN 15 ML BOTTLE BOTH EYES SCH ×7 (00:41→23:27)
[2021-08-31] MEDS: FentaNYL (PF) 1,000 MCG/100 ML IV.SOLN IVC SCH (02:10)
[2021-08-31] MEDS: Levalbuterol Neb 1.25 MG/3 ML IH SCH ×4 (03:35→19:49)
[2021-08-31] MEDS: Midazolam HCl 50 MG/100 ML IV.SOLN IVC SCH ×3 (03:40→14:10)
[2021-08-31 04:24] LABS: ABG Base Excess 3 mEq/L (-2 to 3); ABG HCO3 30 mEq/L (21-27); ABG Oxygen Saturation 95 % (95-98); ABG PCO2 54 mmHg (35-45); ABG PH 7.35 pH Units (7.32-7.45); ABG PO2 79 mmHg (85-104); ABG TCO2 31 mEq/L (20-26); Blood Gas Modality AF; Blood Gas VT 420 cc
[2021-08-31 04:32] LABS: VBG Ionized Calcium 1.14 mmol/L (1.15-1.35)
[2021-08-31 04:56] LABS: BUN/Creatinine Ratio 47 (6-26); Blood Urea Nitrogen 24 mg/dL (6-20); Calcium 7.9 mg/dL (8.6-10.3); Carbon Dioxide 31 mEq/L (23-29); Chloride 111 mEq/L (98-107); Glucose 115 mg/dL (70-105); Osmolality,Calculated 303 (280-300); Potassium 4.2 mEq/L (3.5-5.1); Sodium 144 mEq/L (136-145); eGFR For African Americans > 60 (> 60); eGFR For Non-African Americans > 60 (> 60)
[2021-08-31 05:01] LABS: Hematocrit 32.7 % (37.5-50.1); Hemoglobin 9.7 g/dL (12.9-16.9); Mean Corpuscular HGB Conc 29.7 g/dL (31.6-35.5); Mean Corpuscular Hemoglobin 30.9 pg (28.0-33.3); Mean Corpuscular Volume 104.1 fL (83.0-100.0); Nucleated Red Blood Cells 0.7 /100 WBC (0); Platelet Count 126 K/mcL (140-400); Red Blood Count 3.14 M/mcL (4.19-5.50); Red Cell Distribution Width 14.2 % (11.5-14.5); White Blood Count 5.9 K/mcL (4.3-11.1)
[2021-08-31] MEDS: Argatroban 250 MG in 0.9 % Sodium Chloride 250 ML IVC SCH ×3 (06:51→15:55)
[2021-08-31] MEDS: FentaNYL (PF) 2,500 MCG/50 ML IV.SOLN IVC SCH ×2 (07:34→16:17)
[2021-08-31 08:06] LABS: Eosinophils # 0.5 K/mcL (0.0-0.6); Lymphocytes # 0.5 K/mcL (0.6-4.6); Monocytes # 0.1 K/mcL (0.0-1.3); Neutrophils # 4.8 K/mcL (1.6-8.9)
[2021-08-31 08:07] LABS: Platelet Estimate Normal (Normal)
[2021-08-31] MEDS: Budesonide/Formoterol 160/4.5 1 PUFF INH IH SCH ×2 (08:25→19:49)
[2021-08-31] MEDS: Cefepime HCl 2,000 MG in Water for inj. (sterile) 20 ML IVP SCH ×2 (09:14→15:59)
[2021-08-31] MEDS: Docusate Oral Soln 100 MG/10 ML UDC GTUBE SCH ×2 (09:14→20:09)
[2021-08-31] MEDS: MetroNIDAZOLE 500 MG/100 ML 500 MG/100 ML BAG IVPB SCH ×2 (09:14→15:59)
[2021-08-31] MEDS: Cholecalciferol (D-3) 1,000 UNIT (25MCG) TABLET PO SCH (09:14)
[2021-08-31] MEDS: Pantoprazole 40 MG VIAL IVP SCH (09:14)
[2021-08-31] MEDS: Chlorhexidine Rinse 15 ML MOUTHWASH MM SCH ×2 (09:14→20:09)
[2021-08-31] MEDS: ELDERBERRY PO SCH (09:15)
[2021-08-31] MEDS: Ascorbic Acid 500 MG TABLET PO SCH (09:15)
[2021-08-31] MEDS: [UNRECOGNIZED DRUG - OTHER] PO SCH (09:15)
[2021-09-01] MEDS: Midazolam HCl 50 MG/100 ML IV.SOLN IVC SCH ×5 (01:00→23:05)
[2021-09-01] MEDS: FentaNYL (PF) 2,500 MCG/50 ML IV.SOLN IVC SCH ×2 (02:31→14:10)
[2021-09-01] MEDS: Levalbuterol Neb 1.25 MG/3 ML IH SCH ×4 (03:45→20:33)
[2021-09-01 04:01] LABS: VBG Ionized Calcium 1.19 mmol/L (1.15-1.35)
[2021-09-01 04:09] LABS: Hematocrit 32.7 % (37.5-50.1); Hemoglobin 9.7 g/dL (12.9-16.9); Mean Corpuscular HGB Conc 29.7 g/dL (31.6-35.5); Mean Corpuscular Hemoglobin 30.9 pg (28.0-33.3); Mean Corpuscular Volume 104.1 fL (83.0-100.0); Mean Platelet Volume 10.7 fL (9.4-12.4); Nucleated Red Blood Cells 0.6 /100 WBC (0); Platelet Count 127 K/mcL (140-400); Red Blood Count 3.14 M/mcL (4.19-5.50); Red Cell Distribution Width 14.4 % (11.5-14.5); White Blood Count 5.1 K/mcL (4.3-11.1)
[2021-09-01 04:14] LABS: ABG Base Excess 5 mEq/L (-2 to 3); ABG HCO3 32 mEq/L (21-27); ABG Oxygen Saturation 91 % (95-98); ABG PCO2 57 mmHg (35-45); ABG PH 7.35 pH Units (7.32-7.45); ABG PO2 66 mmHg (85-104); ABG TCO2 34 mEq/L (20-26); Blood Gas VT 420 cc
[2021-09-01 04:16] LABS: BUN/Creatinine Ratio 45 (6-26); Blood Urea Nitrogen 18 mg/dL (6-20); Calcium 7.8 mg/dL (8.6-10.3); Carbon Dioxide 35 mEq/L (23-29); Chloride 106 mEq/L (98-107); Glucose 94 mg/dL (70-105); Osmolality,Calculated 296 (280-300); Phosphorous 2.3 mg/dL (2.7-4.5); Potassium 4.2 mEq/L (3.5-5.1); Sodium 142 mEq/L (136-145); eGFR For African Americans > 60 (> 60); eGFR For Non-African Americans > 60 (> 60)
[2021-09-01] MEDS: Artificial Tears SOLN 15 ML BOTTLE BOTH EYES SCH ×6 (04:36→23:06)
[2021-09-01 05:30] LABS: Anisocytosis 1+ (Not Present); Eosinophils # 0.1 K/mcL (0.0-0.6); Lymphocytes # 0.4 K/mcL (0.6-4.6); Monocytes # 0.2 K/mcL (0.0-1.3); Neutrophils # 4.1 K/mcL (1.6-8.9); Platelet Estimate Normal (Normal); Polychromasia 1+ (Not Present)
[2021-09-01] MEDS: Docusate Oral Soln 100 MG/10 ML UDC GTUBE SCH ×2 (08:00→20:07)
[2021-09-01] MEDS: Chlorhexidine Rinse 15 ML MOUTHWASH MM SCH ×2 (08:00→20:07)
[2021-09-01] MEDS: Ascorbic Acid 500 MG TABLET PO SCH (08:00)
[2021-09-01] MEDS: Cholecalciferol (D-3) 1,000 UNIT (25MCG) TABLET PO SCH (08:00)
[2021-09-01] MEDS: Pantoprazole 40 MG VIAL IVP SCH (08:00)
[2021-09-01] MEDS: [UNRECOGNIZED DRUG - OTHER] PO SCH (08:00)
[2021-09-01] MEDS: ELDERBERRY PO SCH (08:00)
[2021-09-01] MEDS: Budesonide/Formoterol 160/4.5 1 PUFF INH IH SCH ×2 (08:17→20:33)
[2021-09-01] MEDS: Argatroban 250 MG in 0.9 % Sodium Chloride 250 ML IVC SCH (16:20)
[2021-09-01] MEDS: *HR* Metoprolol 5 MG/5 ML VIAL IVP PRN (20:25)
[2021-09-02] MEDS: FentaNYL (PF) 2,500 MCG/50 ML IV.SOLN IVC SCH ×2 (01:02→14:10)
[2021-09-02] MEDS: Artificial Tears SOLN 15 ML BOTTLE BOTH EYES SCH ×5 (03:09→19:40)
[2021-09-02 03:25] LABS: Basophils # 0.1 K/mcL (0.0-0.2); Eosinophils # 0.2 K/mcL (0.0-0.6); Hematocrit 29.8 % (37.5-50.1); Mean Corpuscular HGB Conc 30.2 g/dL (31.6-35.5); Mean Corpuscular Hemoglobin 31.1 pg (28.0-33.3); Mean Corpuscular Volume 103.1 fL (83.0-100.0); Mean Platelet Volume 10.7 fL (9.4-12.4); Nucleated Red Blood Cells 0.4 /100 WBC (0); Platelet Count 131 K/mcL (140-400); Red Blood Count 2.89 M/mcL (4.19-5.50); Red Cell Distribution Width 14.5 % (11.5-14.5); White Blood Count 4.9 K/mcL (4.3-11.1)
[2021-09-02 03:45] LABS: BUN/Creatinine Ratio 43 (6-26); Blood Urea Nitrogen 18 mg/dL (6-20); Calcium 7.6 mg/dL (8.6-10.3); Carbon Dioxide 37 mEq/L (23-29); Chloride 104 mEq/L (98-107); Glucose 115 mg/dL (70-105); Magnesium 1.9 mg/dL (1.6-2.6); Osmolality,Calculated 293 (280-300); Phosphorous 2.3 mg/dL (2.7-4.5); Potassium 4.4 mEq/L (3.5-5.1); Sodium 140 mEq/L (136-145); eGFR For African Americans > 60 (> 60); eGFR For Non-African Americans > 60 (> 60)
[2021-09-02] MEDS: *HR* Metoprolol 5 MG/5 ML VIAL IVP PRN ×2 (03:45→19:36)
[2021-09-02] MEDS: Midazolam HCl 50 MG/100 ML IV.SOLN IVC SCH ×4 (03:56→20:06)
[2021-09-02 04:01] LABS: Anisocytosis 1+ (Not Present); Basophilic Stippling 1+ (Not Present); Lymphocytes # 0.3 K/mcL (0.6-4.6); Monocytes # 0.3 K/mcL (0.0-1.3); Neutrophils # 3.6 K/mcL (1.6-8.9); Platelet Estimate Normal (Normal); Polychromasia 1+ (Not Present)
[2021-09-02] MEDS: Levalbuterol Neb 1.25 MG/3 ML IH SCH ×4 (04:07→21:37)
[2021-09-02 04:41] LABS: ABG Base Excess 8 mEq/L (-2 to 3); ABG HCO3 35 mEq/L (21-27); ABG Oxygen Saturation 89 % (95-98); ABG PCO2 57 mmHg (35-45); ABG PH 7.39 pH Units (7.32-7.45); ABG PO2 58 mmHg (85-104); ABG TCO2 36 mEq/L (20-26); Blood Gas VT 420 cc
[2021-09-02] MEDS: ELDERBERRY PO SCH (07:11)
[2021-09-02] MEDS: [UNRECOGNIZED DRUG - OTHER] PO SCH (07:11)
[2021-09-02] MEDS: Budesonide/Formoterol 160/4.5 1 PUFF INH IH SCH ×2 (07:49→21:37)
[2021-09-02] MEDS: Cholecalciferol (D-3) 1,000 UNIT (25MCG) TABLET PO SCH (07:56)
[2021-09-02] MEDS: Pantoprazole 40 MG VIAL IVP SCH (07:56)
[2021-09-02] MEDS: Docusate Oral Soln 100 MG/10 ML UDC GTUBE SCH ×2 (07:56→19:53)
[2021-09-02] MEDS: Ascorbic Acid 500 MG TABLET PO SCH (07:56)
[2021-09-02] MEDS: Chlorhexidine Rinse 15 ML MOUTHWASH MM SCH ×2 (07:56→19:53)
[2021-09-02 10:26] LABS: Magnesium 2.1 mg/dL (1.6-2.6); Phosphorous 2.6 mg/dL (2.7-4.5)
[2021-09-03] MEDS: Midazolam HCl 50 MG/100 ML IV.SOLN IVC SCH ×5 (01:30→21:30)
[2021-09-03] MEDS: Argatroban 250 MG in 0.9 % Sodium Chloride 250 ML IVC SCH ×2 (01:44→19:04)
[2021-09-03] MEDS: FentaNYL (PF) 2,500 MCG/50 ML IV.SOLN IVC SCH ×2 (01:46→13:27)
[2021-09-03] MEDS: Levalbuterol Neb 1.25 MG/3 ML IH SCH ×4 (03:19→19:55)
[2021-09-03 03:47] LABS: Hematocrit 30.5 % (37.5-50.1); Hemoglobin 9.3 g/dL (12.9-16.9); Mean Corpuscular HGB Conc 30.5 g/dL (31.6-35.5); Mean Corpuscular Hemoglobin 31.4 pg (28.0-33.3); Nucleated Red Blood Cells 0.4 /100 WBC (0); Platelet Count 141 K/mcL (140-400); Red Blood Count 2.96 M/mcL (4.19-5.50); Red Cell Distribution Width 15.2 % (11.5-14.5); White Blood Count 5.5 K/mcL (4.3-11.1)
[2021-09-03 03:51] LABS: VBG Ionized Calcium 1.15 mmol/L (1.15-1.35)
[2021-09-03] MEDS: Artificial Tears SOLN 15 ML BOTTLE BOTH EYES SCH ×6 (03:55→22:13)
[2021-09-03 03:58] LABS: BUN/Creatinine Ratio 51 (6-26); Blood Urea Nitrogen 21 mg/dL (6-20); Calcium 7.4 mg/dL (8.6-10.3); Carbon Dioxide 36 mEq/L (23-29); Chloride 101 mEq/L (98-107); Glucose 129 mg/dL (70-105); Osmolality,Calculated 293 (280-300); Potassium 4.4 mEq/L (3.5-5.1); Sodium 139 mEq/L (136-145); eGFR For African Americans > 60 (> 60); eGFR For Non-African Americans > 60 (> 60)
[2021-09-03 03:59] LABS: Phosphorous 2.9 mg/dL (2.7-4.5)
[2021-09-03 04:15] LABS: Lymphocytes # 0.4 K/mcL (0.6-4.6); Neutrophils # 4.2 K/mcL (1.6-8.9)
[2021-09-03 04:16] LABS: Anisocytosis 1+ (Not Present); Basophilic Stippling 1+ (Not Present); Platelet Estimate Normal (Normal); Polychromasia 1+ (Not Present)
[2021-09-03 05:15] LABS: ABG Base Excess 11 mEq/L (-2 to 3); ABG HCO3 37 mEq/L (21-27); ABG Oxygen Saturation 93 % (95-98); ABG PCO2 61 mmHg (35-45); ABG PO2 69 mmHg (85-104); ABG TCO2 39 mEq/L (20-26); Blood Gas Modality ASSIST CONTROL; Blood Gas VT 420 cc
[2021-09-03] MEDS: ELDERBERRY PO SCH (07:18)
[2021-09-03] MEDS: [UNRECOGNIZED DRUG - OTHER] PO SCH (07:18)
[2021-09-03] MEDS: Docusate Oral Soln 100 MG/10 ML UDC GTUBE SCH ×2 (07:34→22:12)
[2021-09-03] MEDS: Ascorbic Acid 500 MG TABLET PO SCH (07:34)
[2021-09-03] MEDS: Cholecalciferol (D-3) 1,000 UNIT (25MCG) TABLET PO SCH (07:34)
[2021-09-03] MEDS: Chlorhexidine Rinse 15 ML MOUTHWASH MM SCH ×2 (07:34→22:12)
[2021-09-03] MEDS: Pantoprazole 40 MG VIAL IVP SCH (07:34)
[2021-09-03] MEDS ORDERED: Furosemide 20 MG/2 ML VIAL IVP ONE ×2 (07:46→13:08)
[2021-09-03] MEDS: Budesonide/Formoterol 160/4.5 1 PUFF INH IH SCH ×2 (11:38→19:54)
[2021-09-03] MEDS ORDERED: Dexmedetomidine HCl 400 MCG/100 ML MLS IVC ONE (13:05)
[2021-09-03] MEDS: Dexmedetomidine HCl 400 MCG/100 ML MLS IVC SCH (13:10)
[2021-09-03] MEDS ORDERED: *HR* Heparin 5,000 UNIT/ML VIAL IVP PRN (16:09)
[2021-09-03] MEDS ORDERED: Heparin 25,000UNIT/250ML 1/2NS 25,000 UNIT/250 ML IV.SOLN IVC SCH (16:15)
[2021-09-03] MEDS: Cisatracurium 200 MG in 0.9 % Sodium Chloride 180 ML IVC SCH (16:59)
[2021-09-03 17:43] LABS: Hematocrit 28.3 % (37.5-50.1); Hemoglobin 8.8 g/dL (12.9-16.9); Mean Corpuscular HGB Conc 31.1 g/dL (31.6-35.5); Mean Corpuscular Hemoglobin 31.7 pg (28.0-33.3); Mean Corpuscular Volume 101.8 fL (83.0-100.0); Mean Platelet Volume 10.9 fL (9.4-12.4); Platelet Count 141 K/mcL (140-400); Red Blood Count 2.78 M/mcL (4.19-5.50); Red Cell Distribution Width 15.1 % (11.5-14.5); White Blood Count 5.8 K/mcL (4.3-11.1)
[2021-09-03 17:51] LABS: Heparin anti-factor XA UFH < 0.04 IU/mL (0.30-0.70); INR 1.6; Prothrombin Time 18.1 Seconds (9.4-12.1)
[2021-09-03] MEDS: Phenylephrine 10 MG in 0.9 % Sodium Chloride 250 ML IVC SCH (18:20)
[2021-09-03 18:40] LABS: ABG Base Excess 11 mEq/L (-2 to 3); ABG HCO3 39 mEq/L (21-27); ABG Oxygen Saturation 94 % (95-98); ABG PCO2 62 mmHg (35-45); ABG PO2 72 mmHg (85-104); ABG TCO2 40 mEq/L (20-26); Blood Gas Modality ASSIST CONTROL; Blood Gas VT 420 cc
[2021-09-04] MEDS: Artificial Tears SOLN 15 ML BOTTLE BOTH EYES SCH ×7 (01:04→23:46)
[2021-09-04] MEDS: FentaNYL (PF) 2,500 MCG/50 ML IV.SOLN IVC SCH ×3 (01:33→22:05)
[2021-09-04 04:01] LABS: Hematocrit 28.8 % (37.5-50.1); Hemoglobin 9.1 g/dL (12.9-16.9); Mean Corpuscular HGB Conc 31.6 g/dL (31.6-35.5); Mean Corpuscular Hemoglobin 31.8 pg (28.0-33.3); Mean Corpuscular Volume 100.7 fL (83.0-100.0); Nucleated Red Blood Cells 0.3 /100 WBC (0); Platelet Count 159 K/mcL (140-400); Red Blood Count 2.86 M/mcL (4.19-5.50); Red Cell Distribution Width 15.3 % (11.5-14.5); White Blood Count 6.3 K/mcL (4.3-11.1)
[2021-09-04] MEDS: Levalbuterol Neb 1.25 MG/3 ML IH SCH ×4 (04:16→20:04)
[2021-09-04] MEDS: Midazolam HCl 50 MG/100 ML IV.SOLN IVC SCH ×4 (04:25→20:05)
[2021-09-04 04:27] LABS: Phosphorous 2.7 mg/dL (2.7-4.5)
[2021-09-04 04:28] LABS: BUN/Creatinine Ratio 44 (6-26); Blood Urea Nitrogen 19 mg/dL (6-20); Calcium 7.7 mg/dL (8.6-10.3); Carbon Dioxide 38 mEq/L (23-29); Chloride 97 mEq/L (98-107); Glucose 92 mg/dL (70-105); Osmolality,Calculated 288 (280-300); Potassium 3.9 mEq/L (3.5-5.1); Sodium 138 mEq/L (136-145); eGFR For African Americans > 60 (> 60); eGFR For Non-African Americans > 60 (> 60)
[2021-09-04 04:44] LABS: ABG Base Excess 11 mEq/L (-2 to 3); ABG HCO3 39 mEq/L (21-27); ABG Oxygen Saturation 88 % (95-98); ABG PCO2 62 mmHg (35-45); ABG PH 7.41 pH Units (7.32-7.45); ABG PO2 56 mmHg (85-104); ABG TCO2 41 mEq/L (20-26); Blood Gas Modality ASSIST CONTROL; Blood Gas VT 420 cc
[2021-09-04 04:47] LABS: VBG Ionized Calcium 1.11 mmol/L (1.15-1.35)
[2021-09-04 04:56] LABS: Anisocytosis 2+ (Not Present); Lymphocytes # 0.5 K/mcL (0.6-4.6); Monocytes # 0.3 K/mcL (0.0-1.3); Neutrophils # 5.4 K/mcL (1.6-8.9); Platelet Estimate Normal (Normal)
[2021-09-04 04:57] LABS: Basophilic Stippling 1+ (Not Present); Polychromasia 1+ (Not Present)
[2021-09-04] MEDS: Cisatracurium 200 MG in 0.9 % Sodium Chloride 180 ML IVC SCH ×3 (05:40→19:11)
[2021-09-04] MEDS: Furosemide 40 MG/4 ML VIAL IVP SCH ×2 (05:40→08:57)
[2021-09-04] MEDS: *HR* Metoprolol 5 MG/5 ML VIAL IVP PRN (05:49)
[2021-09-04] MEDS: Budesonide/Formoterol 160/4.5 1 PUFF INH IH SCH ×2 (08:14→20:04)
[2021-09-04] MEDS: Docusate Oral Soln 100 MG/10 ML UDC GTUBE SCH ×2 (08:56→21:22)
[2021-09-04] MEDS: Chlorhexidine Rinse 15 ML MOUTHWASH MM SCH ×2 (08:56→21:22)
[2021-09-04] MEDS: Pantoprazole 40 MG VIAL IVP SCH (08:56)
[2021-09-04] MEDS: Cholecalciferol (D-3) 1,000 UNIT (25MCG) TABLET PO SCH (08:57)
[2021-09-04] MEDS: Ascorbic Acid 500 MG TABLET PO SCH (08:57)
[2021-09-04] MEDS: ELDERBERRY PO SCH (08:57)
[2021-09-04] MEDS: [UNRECOGNIZED DRUG - OTHER] PO SCH (08:57)
[2021-09-04 11:41] LABS: Bilirubin,Urine Negative (Negative); Blood,Urine Negative (Negative); Clarity,Urine Clear (Clear); Color,Urine Yellow (Yellow); Glucose,Urine (UA) Normal (Normal); Ketones,Urine Trace mg/dL (Negative); Leukocyte Esterase,Urine Negative (Negative); Nitrite,Urine Negative (Negative); PH,Urine 6.5 pH Units (5.0-8.0); Protein,Urine Trace mg/dL (Neg-Trace); Specific Gravity,Urine 1.017 (1.010-1.025); Urobilinogen,Urine >=8.0 mg/dL (Normal)
[2021-09-04] MEDS: Heparin 25,000UNIT/250ML 1/2NS 25,000 UNIT/250 ML IV.SOLN IVC SCH (13:30)
[2021-09-04] MEDS: Piperacillin/Tazobactam 3.375 GM in 0.9 % Sodium Chloride Mini Bag 100 ML IVPB SCH ×2 (13:49→21:22)
[2021-09-04] MEDS: Vancomycin 1,500 MG/265 ML IV.SOLN IVPB SCH ×2 (13:49→23:46)
[2021-09-04] MEDS: Phenylephrine 10 MG in 0.9 % Sodium Chloride 250 ML IVC SCH (21:24)
[2021-09-04] MEDS: Dexmedetomidine HCl 400 MCG/100 ML MLS IVC SCH (21:24)
[2021-09-05] MEDS: Midazolam HCl 50 MG/100 ML IV.SOLN IVC SCH ×5 (00:51→22:30)
[2021-09-05] MEDS: Cisatracurium 200 MG in 0.9 % Sodium Chloride 180 ML IVC SCH ×4 (01:21→19:07)
[2021-09-05] MEDS: Piperacillin/Tazobactam 3.375 GM in 0.9 % Sodium Chloride Mini Bag 100 ML IVPB SCH ×3 (04:06→20:36)
[2021-09-05] MEDS: Dexmedetomidine HCl 400 MCG/100 ML MLS IVC SCH ×2 (04:07→23:57)
[2021-09-05] MEDS: Artificial Tears SOLN 15 ML BOTTLE BOTH EYES SCH ×6 (04:07→23:57)
[2021-09-05] MEDS: Levalbuterol Neb 1.25 MG/3 ML IH SCH ×4 (04:15→19:59)
[2021-09-05 04:16] LABS: VBG Ionized Calcium 1.11 mmol/L (1.15-1.35)
[2021-09-05 04:17] LABS: Basophils % 0.5 %; Eosinophils # 0.1 K/mcL (0.0-0.6); Eosinophils % 1.7 %; Hemoglobin 8.6 g/dL (12.9-16.9); Immature Granulocytes % 5.4 % (0-4); Lymphocytes # 0.7 K/mcL (0.6-4.6); Lymphocytes % 11.2 %; Mean Corpuscular HGB Conc 31.9 g/dL (31.6-35.5); Mean Corpuscular Hemoglobin 32.6 pg (28.0-33.3); Mean Corpuscular Volume 102.3 fL (83.0-100.0); Mean Platelet Volume 11.3 fL (9.4-12.4); Monocytes % 9.9 %; Nucleated Red Blood Cells 0.5 /100 WBC (0); Platelet Count 171 K/mcL (140-400); Red Blood Count 2.64 M/mcL (4.19-5.50); Red Cell Distribution Width 15.9 % (11.5-14.5); Segmented Neutrophils % 71.3 %; White Blood Count 6.5 K/mcL (4.3-11.1)
[2021-09-05 04:19] LABS: Monocytes # 0.6 K/mcL (0.0-1.3); Neutrophils # 4.6 K/mcL (1.6-8.9)
[2021-09-05 04:28] LABS: BUN/Creatinine Ratio 50 (6-26); Blood Urea Nitrogen 19 mg/dL (6-20); Calcium 7.6 mg/dL (8.6-10.3); Carbon Dioxide 38 mEq/L (23-29); Chloride 99 mEq/L (98-107); Glucose 127 mg/dL (70-105); Osmolality,Calculated 288 (280-300); Phosphorous 2.8 mg/dL (2.7-4.5); Potassium 3.9 mEq/L (3.5-5.1); Sodium 137 mEq/L (136-145); eGFR For African Americans > 60 (> 60); eGFR For Non-African Americans > 60 (> 60)
[2021-09-05 04:37] LABS: Anisocytosis 1+ (Not Present); Platelet Estimate Normal (Normal); Poikilocytosis 1+ (Not Present); Polychromasia 1+ (Not Present)
[2021-09-05 04:38] LABS: Basophilic Stippling 1+ (Not Present)
[2021-09-05 04:55] LABS: ABG Base Excess 9 mEq/L (-2 to 3); ABG HCO3 37 mEq/L (21-27); ABG Oxygen Saturation 94 % (95-98); ABG PCO2 63 mmHg (35-45); ABG PH 7.38 pH Units (7.32-7.45); ABG PO2 77 mmHg (85-104); ABG TCO2 39 mEq/L (20-26); Blood Gas Modality ASSIST CONTROL; Blood Gas VT 380 cc
[2021-09-05] MEDS: Budesonide/Formoterol 160/4.5 1 PUFF INH IH SCH ×2 (07:59→19:59)
[2021-09-05] MEDS: FentaNYL (PF) 2,500 MCG/50 ML IV.SOLN IVC SCH ×3 (08:09→23:59)
[2021-09-05] MEDS: Ascorbic Acid 500 MG TABLET PO SCH (08:38)
[2021-09-05] MEDS: Furosemide 40 MG/4 ML VIAL IVP SCH (08:38)
[2021-09-05] MEDS: Docusate Oral Soln 100 MG/10 ML UDC GTUBE SCH ×2 (08:38→20:36)
[2021-09-05] MEDS: Chlorhexidine Rinse 15 ML MOUTHWASH MM SCH ×2 (08:38→20:36)
[2021-09-05] MEDS: Cholecalciferol (D-3) 1,000 UNIT (25MCG) TABLET PO SCH (08:38)
[2021-09-05] MEDS: Pantoprazole 40 MG VIAL IVP SCH (08:38)
[2021-09-05] MEDS: ELDERBERRY PO SCH (08:58)
[2021-09-05] MEDS: Calcium Gluconate 1gm/50mL 1 GM/50 ML BAG IVPB SCH (08:58)
[2021-09-05] MEDS: [UNRECOGNIZED DRUG - OTHER] PO SCH (08:59)
[2021-09-05] MEDS: Heparin 25,000UNIT/250ML 1/2NS 25,000 UNIT/250 ML IV.SOLN IVC SCH ×2 (12:07→19:12)
[2021-09-05] MEDS: Vancomycin 1,500 MG/265 ML IV.SOLN IVPB SCH (12:08)
[2021-09-05] MEDS: *HR* Metoprolol 5 MG/5 ML VIAL IVP PRN ×2 (14:50→20:36)
[2021-09-05] MEDS: Bisacodyl 10 MG RECTAL SUPPOSITORY RC SCH (20:36)
[2021-09-06] MEDS: Acetaminophen 325 MG TABLET PO PRN (00:29)
[2021-09-06] MEDS: Vancomycin 1,750 MG/517.5 ML IV.SOLN IVPB SCH ×3 (00:38→23:52)
[2021-09-06] MEDS: *HR* Metoprolol 5 MG/5 ML VIAL IVP PRN (00:38)
[2021-09-06] MEDS: Vancomycin 1,500 MG/265 ML IV.SOLN IVPB SCH (00:39)
[2021-09-06 01:19] LABS: ABG Base Excess 12 mEq/L (-2 to 3); ABG HCO3 40 mEq/L (21-27); ABG Oxygen Saturation 87 % (95-98); ABG PCO2 79 mmHg (35-45); ABG PH 7.31 pH Units (7.32-7.45); ABG PO2 61 mmHg (85-104); ABG TCO2 43 mEq/L (20-26); Blood Gas VT 380 cc
[2021-09-06] MEDS: Cisatracurium 200 MG in 0.9 % Sodium Chloride 180 ML IVC SCH ×4 (01:40→20:48)
[2021-09-06] MEDS: Piperacillin/Tazobactam 3.375 GM in 0.9 % Sodium Chloride Mini Bag 100 ML IVPB SCH ×3 (03:50→20:48)
[2021-09-06] MEDS: Artificial Tears SOLN 15 ML BOTTLE BOTH EYES SCH ×6 (03:50→23:51)
[2021-09-06] MEDS: Heparin 25,000UNIT/250ML 1/2NS 25,000 UNIT/250 ML IV.SOLN IVC SCH ×2 (03:50→10:30)
[2021-09-06] MEDS: Levalbuterol Neb 1.25 MG/3 ML IH SCH ×4 (03:56→20:14)
[2021-09-06 03:57] LABS: Hematocrit 26.7 % (37.5-50.1); Hemoglobin 7.9 g/dL (12.9-16.9); Lymphocytes # 0.6 K/mcL (0.6-4.6); Mean Corpuscular HGB Conc 29.6 g/dL (31.6-35.5); Mean Corpuscular Volume 104.7 fL (83.0-100.0); Mean Platelet Volume 10.8 fL (9.4-12.4); Monocytes # 0.7 K/mcL (0.0-1.3); Nucleated Red Blood Cells 0.5 /100 WBC (0); Platelet Count 166 K/mcL (140-400); Red Blood Count 2.55 M/mcL (4.19-5.50); Red Cell Distribution Width 16.2 % (11.5-14.5); White Blood Count 5.6 K/mcL (4.3-11.1)
[2021-09-06 03:57] LABS: VBG Ionized Calcium 1.01 mmol/L (1.15-1.35)
[2021-09-06 04:14] LABS: BUN/Creatinine Ratio 41 (6-26); Blood Urea Nitrogen 23 mg/dL (6-20); Calcium 7.6 mg/dL (8.6-10.3); Carbon Dioxide 39 mEq/L (23-29); Chloride 98 mEq/L (98-107); Glucose 130 mg/dL (70-105); Osmolality,Calculated 293 (280-300); Phosphorous 2.8 mg/dL (2.7-4.5); Potassium 4.3 mEq/L (3.5-5.1); Sodium 139 mEq/L (136-145); eGFR For African Americans > 60 (> 60); eGFR For Non-African Americans > 60 (> 60)
[2021-09-06] MEDS: Midazolam HCl 50 MG/100 ML IV.SOLN IVC SCH ×5 (04:15→22:07)
[2021-09-06] MEDS: *HR* Heparin 5,000 UNIT/ML VIAL IVP PRN (04:24)
[2021-09-06 04:38] LABS: ABG Base Excess 12 mEq/L (-2 to 3); ABG HCO3 39 mEq/L (21-27); ABG Oxygen Saturation 92 % (95-98); ABG PCO2 63 mmHg (35-45); ABG PO2 67 mmHg (85-104); ABG TCO2 41 mEq/L (20-26); Blood Gas VT 420 cc
[2021-09-06] MEDS: Calcium Gluconate 1gm/50mL 1 GM/50 ML BAG IVPB PRN (04:44)
[2021-09-06 04:48] LABS: Neutrophils # 4.3 K/mcL (1.6-8.9)
[2021-09-06 04:49] LABS: Platelet Estimate Normal (Normal); Reactive Lymphocytes Present (Not Present)
[2021-09-06] MEDS: Budesonide/Formoterol 160/4.5 1 PUFF INH IH SCH ×2 (07:20→20:14)
[2021-09-06] MEDS: Ascorbic Acid 500 MG TABLET PO SCH (08:02)
[2021-09-06] MEDS: Furosemide 40 MG/4 ML VIAL IVP SCH (08:02)
[2021-09-06] MEDS: Pantoprazole 40 MG VIAL IVP SCH (08:02)
[2021-09-06] MEDS: Cholecalciferol (D-3) 1,000 UNIT (25MCG) TABLET PO SCH (08:02)
[2021-09-06] MEDS: Docusate Oral Soln 100 MG/10 ML UDC GTUBE SCH ×2 (08:02→20:48)
[2021-09-06] MEDS: Chlorhexidine Rinse 15 ML MOUTHWASH MM SCH ×2 (08:02→20:48)
[2021-09-06] MEDS: FentaNYL (PF) 2,500 MCG/50 ML IV.SOLN IVC SCH ×2 (08:54→19:04)
[2021-09-06] MEDS: ELDERBERRY PO SCH (10:15)
[2021-09-06] MEDS: [UNRECOGNIZED DRUG - OTHER] PO SCH (10:16)
[2021-09-06 10:19] LABS: Source of Body Fluid RLL BAL
[2021-09-06 11:35] LABS: Appearance of Body Fluid Cloudy (Clear); Volume of Body Fluid 25 mL
[2021-09-06] MEDS: Bisacodyl 10 MG RECTAL SUPPOSITORY RC SCH (20:48)
[2021-09-07] MEDS: Cisatracurium 200 MG in 0.9 % Sodium Chloride 180 ML IVC SCH ×4 (02:59→21:02)
[2021-09-07] MEDS: Midazolam HCl 50 MG/100 ML IV.SOLN IVC SCH ×5 (03:00→21:02)
[2021-09-07] MEDS: Levalbuterol Neb 1.25 MG/3 ML IH SCH ×4 (03:34→19:38)
[2021-09-07 03:37] LABS: Hematocrit 27.4 % (37.5-50.1); Hemoglobin 8.3 g/dL (12.9-16.9); Mean Corpuscular HGB Conc 30.3 g/dL (31.6-35.5); Mean Corpuscular Hemoglobin 31.3 pg (28.0-33.3); Mean Corpuscular Volume 103.4 fL (83.0-100.0); Nucleated Red Blood Cells 0.3 /100 WBC (0); Platelet Count 176 K/mcL (140-400); Red Blood Count 2.65 M/mcL (4.19-5.50); Red Cell Distribution Width 16.5 % (11.5-14.5); White Blood Count 6.1 K/mcL (4.3-11.1)
[2021-09-07] MEDS: Artificial Tears SOLN 15 ML BOTTLE BOTH EYES SCH ×5 (03:39→19:57)
[2021-09-07] MEDS: Piperacillin/Tazobactam 3.375 GM in 0.9 % Sodium Chloride Mini Bag 100 ML IVPB SCH ×3 (03:42→19:56)
[2021-09-07 03:57] LABS: VBG Ionized Calcium 1.01 mmol/L (1.15-1.35)
[2021-09-07 04:07] LABS: Lymphocytes # 0.9 K/mcL (0.6-4.6); Monocytes # 0.6 K/mcL (0.0-1.3); Neutrophils # 4.5 K/mcL (1.6-8.9); Platelet Estimate Normal (Normal)
[2021-09-07 04:08] LABS: ABG Base Excess 13 mEq/L (-2 to 3); ABG HCO3 40 mEq/L (21-27); ABG Oxygen Saturation 87 % (95-98); ABG PCO2 67 mmHg (35-45); ABG PH 7.38 pH Units (7.32-7.45); ABG PO2 57 mmHg (85-104); ABG TCO2 42 mEq/L (20-26); Blood Gas VT 420 cc
[2021-09-07 04:08] LABS: Polychromasia 1+ (Not Present)
[2021-09-07] MEDS: Calcium Gluconate 1gm/50mL 1 GM/50 ML BAG IVPB PRN (04:32)
[2021-09-07] MEDS: Heparin 25,000UNIT/250ML 1/2NS 25,000 UNIT/250 ML IV.SOLN IVC SCH (05:32)
[2021-09-07] MEDS: FentaNYL (PF) 2,500 MCG/50 ML IV.SOLN IVC SCH ×3 (05:32→16:48)
[2021-09-07 05:49] LABS: BUN/Creatinine Ratio 45 (6-26); Blood Urea Nitrogen 22 mg/dL (6-20); Calcium 7.7 mg/dL (8.6-10.3); Carbon Dioxide 37 mEq/L (23-29); Chloride 99 mEq/L (98-107); Glucose 113 mg/dL (70-105); Osmolality,Calculated 294 (280-300); Potassium 3.8 mEq/L (3.5-5.1); Sodium 140 mEq/L (136-145); eGFR For African Americans > 60 (> 60); eGFR For Non-African Americans > 60 (> 60)
[2021-09-07] MEDS: Potassium Chloride 40 MEQ/200 ML BAG IVPB PRN (06:07)
[2021-09-07] MEDS: Chlorhexidine Rinse 15 ML MOUTHWASH MM SCH ×2 (07:51→19:56)
[2021-09-07] MEDS: Furosemide 40 MG/4 ML VIAL IVP SCH (07:51)
[2021-09-07] MEDS: Docusate Oral Soln 100 MG/10 ML UDC GTUBE SCH ×2 (07:51→22:32)
[2021-09-07] MEDS: Pantoprazole 40 MG VIAL IVP SCH (07:52)
[2021-09-07] MEDS: Ascorbic Acid 500 MG TABLET PO SCH (07:52)
[2021-09-07] MEDS: Budesonide/Formoterol 160/4.5 1 PUFF INH IH SCH ×2 (08:14→19:38)
[2021-09-07] MEDS: Acetaminophen 325 MG TABLET PO PRN (11:07)
[2021-09-07 12:51] LABS: Phosphorous 3.4 mg/dL (2.7-4.5); Potassium 4.2 mEq/L (3.5-5.1)
[2021-09-07 13:01] LABS: VBG Ionized Calcium 1.16 mmol/L (1.15-1.35)
[2021-09-07] MEDS: Cholecalciferol (D-3) 1,000 UNIT (25MCG) TABLET PO SCH (13:26)
[2021-09-07] MEDS: Dexmedetomidine HCl 400 MCG/100 ML MLS IVC SCH ×2 (13:31→16:55)
[2021-09-07] MEDS: ELDERBERRY PO SCH (13:32)
[2021-09-07] MEDS: [UNRECOGNIZED DRUG - OTHER] PO SCH (13:32)
[2021-09-07] MEDS: *HR* Metoprolol 5 MG/5 ML VIAL IVP PRN (22:33)
[2021-09-08] MEDS: Artificial Tears SOLN 15 ML BOTTLE BOTH EYES SCH ×7 (00:13→23:38)
[2021-09-08] MEDS: Midazolam HCl 50 MG/100 ML IV.SOLN IVC SCH ×7 (00:17→21:30)
[2021-09-08] MEDS: FentaNYL (PF) 2,500 MCG/50 ML IV.SOLN IVC SCH ×3 (02:49→17:10)
[2021-09-08] MEDS: Heparin 25,000UNIT/250ML 1/2NS 25,000 UNIT/250 ML IV.SOLN IVC SCH ×2 (02:50→21:29)
[2021-09-08] MEDS: Cisatracurium 200 MG in 0.9 % Sodium Chloride 180 ML IVC SCH ×4 (02:52→20:30)
[2021-09-08] MEDS: *HR* Metoprolol 5 MG/5 ML VIAL IVP PRN ×2 (03:01→08:13)
[2021-09-08 04:03] LABS: Basophils # 0.1 K/mcL (0.0-0.2); Basophils % 1.3 %; Eosinophils # 0.1 K/mcL (0.0-0.6); Hemoglobin 8.7 g/dL (12.9-16.9); Immature Granulocytes % 7.4 % (0-4); Lymphocytes # 0.6 K/mcL (0.6-4.6); Lymphocytes % 9.2 %; Mean Corpuscular Hemoglobin 31.3 pg (28.0-33.3); Mean Corpuscular Volume 107.9 fL (83.0-100.0); Mean Platelet Volume 10.7 fL (9.4-12.4); Monocytes # 0.6 K/mcL (0.0-1.3); Monocytes % 8.3 %; Platelet Count 189 K/mcL (140-400); Red Blood Count 2.78 M/mcL (4.19-5.50); Segmented Neutrophils % 72.8 %; White Blood Count 6.9 K/mcL (4.3-11.1)
[2021-09-08 04:05] LABS: VBG Ionized Calcium 1.09 mmol/L (1.15-1.35)
[2021-09-08 04:07] LABS: Platelet Estimate Normal (Normal)
[2021-09-08] MEDS: Piperacillin/Tazobactam 3.375 GM in 0.9 % Sodium Chloride Mini Bag 100 ML IVPB SCH ×3 (04:15→20:02)
[2021-09-08] MEDS: Calcium Gluconate 1gm/50mL 1 GM/50 ML BAG IVPB PRN (04:24)
[2021-09-08 04:26] LABS: BUN/Creatinine Ratio 60 (6-26); Blood Urea Nitrogen 27 mg/dL (6-20); Calcium 8.2 mg/dL (8.6-10.3); Carbon Dioxide 41 mEq/L (23-29); Chloride 98 mEq/L (98-107); Glucose 120 mg/dL (70-105); Osmolality,Calculated 298 (280-300); Potassium 4.7 mEq/L (3.5-5.1); Sodium 141 mEq/L (136-145); eGFR For African Americans > 60 (> 60); eGFR For Non-African Americans > 60 (> 60)
[2021-09-08] MEDS: Levalbuterol Neb 1.25 MG/3 ML IH SCH ×4 (04:59→20:06)
[2021-09-08 05:14] LABS: ABG Base Excess 15 mEq/L (-2 to 3); ABG HCO3 44 mEq/L (21-27); ABG Oxygen Saturation 87 % (95-98); ABG PCO2 95 mmHg (35-45); ABG PH 7.28 pH Units (7.32-7.45); ABG PO2 65 mmHg (85-104); ABG TCO2 47 mEq/L (20-26); Blood Gas VT 420 cc
[2021-09-08] MEDS: Chlorhexidine Rinse 15 ML MOUTHWASH MM SCH ×2 (07:44→20:02)
[2021-09-08] MEDS: Pantoprazole 40 MG VIAL IVP SCH (07:45)
[2021-09-08] MEDS: Docusate Oral Soln 100 MG/10 ML UDC GTUBE SCH ×2 (07:45→20:02)
[2021-09-08] MEDS: [UNRECOGNIZED DRUG - OTHER] PO SCH (07:46)
[2021-09-08] MEDS: Furosemide 40 MG/4 ML VIAL IVP SCH (07:46)
[2021-09-08] MEDS: ELDERBERRY PO SCH (07:46)
[2021-09-08] MEDS: Ascorbic Acid 500 MG TABLET PO SCH (07:47)
[2021-09-08] MEDS: Cholecalciferol (D-3) 1,000 UNIT (25MCG) TABLET PO SCH (07:47)
[2021-09-08] MEDS: Acetaminophen 325 MG TABLET PO PRN (08:12)
[2021-09-08] MEDS: Budesonide/Formoterol 160/4.5 1 PUFF INH IH SCH ×2 (08:19→20:06)
[2021-09-08 12:04] LABS: VBG Ionized Calcium 1.16 mmol/L (1.15-1.35)
[2021-09-08] MEDS: Dexmedetomidine HCl 400 MCG/100 ML MLS IVC SCH ×3 (13:20→21:33)
[2021-09-08 15:09] LABS: VBG Ionized Calcium 1.18 mmol/L (1.15-1.35)
[2021-09-09] MEDS: Midazolam HCl 50 MG/100 ML IV.SOLN IVC SCH ×5 (01:58→20:15)
[2021-09-09] MEDS: Cisatracurium 200 MG in 0.9 % Sodium Chloride 180 ML IVC SCH (01:59)
[2021-09-09] MEDS: FentaNYL (PF) 2,500 MCG/50 ML IV.SOLN IVC SCH ×3 (02:43→23:08)
[2021-09-09 03:19] LABS: Basophils # 0.1 K/mcL (0.0-0.2); Basophils % 1.2 %; Eosinophils # 0.1 K/mcL (0.0-0.6); Eosinophils % 1.7 %; Hematocrit 26.4 % (37.5-50.1); Hemoglobin 7.7 g/dL (12.9-16.9); Immature Granulocytes % 8.6 % (0-4); Lymphocytes # 0.8 K/mcL (0.6-4.6); Lymphocytes % 13.4 %; Mean Corpuscular HGB Conc 29.2 g/dL (31.6-35.5); Mean Corpuscular Hemoglobin 31.7 pg (28.0-33.3); Mean Corpuscular Volume 108.6 fL (83.0-100.0); Mean Platelet Volume 10.8 fL (9.4-12.4); Monocytes # 0.7 K/mcL (0.0-1.3); Monocytes % 10.9 %; Neutrophils # 3.9 K/mcL (1.6-8.9); Nucleated Red Blood Cells 0.8 /100 WBC (0); Platelet Count 167 K/mcL (140-400); Red Blood Count 2.43 M/mcL (4.19-5.50); Segmented Neutrophils % 64.2 %
[2021-09-09 03:20] LABS: VBG Ionized Calcium 1.13 mmol/L (1.15-1.35)
[2021-09-09] MEDS: Artificial Tears SOLN 15 ML BOTTLE BOTH EYES SCH ×6 (03:31→23:08)
[2021-09-09] MEDS: Piperacillin/Tazobactam 3.375 GM in 0.9 % Sodium Chloride Mini Bag 100 ML IVPB SCH ×3 (03:32→19:55)
[2021-09-09 03:47] LABS: Anisocytosis 1+ (Not Present); Platelet Estimate Normal (Normal); Polychromasia 1+ (Not Present)
[2021-09-09] MEDS: Levalbuterol Neb 1.25 MG/3 ML IH SCH ×4 (03:47→20:25)
[2021-09-09] MEDS: Dexmedetomidine HCl 400 MCG/100 ML MLS IVC SCH ×4 (04:02→22:00)
[2021-09-09 04:15] LABS: ABG Base Excess 12 mEq/L (-2 to 3); ABG HCO3 41 mEq/L (21-27); ABG Oxygen Saturation 87 % (95-98); ABG PCO2 73 mmHg (35-45); ABG PH 7.36 pH Units (7.32-7.45); ABG PO2 58 mmHg (85-104); ABG TCO2 43 mEq/L (20-26); Blood Gas VT 420 cc
[2021-09-09 04:20] LABS: BUN/Creatinine Ratio 66 (6-26); Blood Urea Nitrogen 33 mg/dL (6-20); Calcium 8.1 mg/dL (8.6-10.3); Carbon Dioxide 40 mEq/L (23-29); Chloride 98 mEq/L (98-107); Glucose 130 mg/dL (70-105); Magnesium 2.1 mg/dL (1.6-2.6); Osmolality,Calculated 301 (280-300); Phosphorous 2.8 mg/dL (2.7-4.5); Potassium 3.8 mEq/L (3.5-5.1); Sodium 141 mEq/L (136-145); eGFR For African Americans > 60 (> 60); eGFR For Non-African Americans > 60 (> 60)
[2021-09-09] MEDS: Potassium Chloride 40 MEQ/200 ML BAG IVPB PRN ×3 (04:34→12:30)
[2021-09-09] MEDS: Cisatracurium 400 MG in 0.9 % Sodium Chloride 360 ML IVC SCH ×2 (07:53→17:19)
[2021-09-09] MEDS: Docusate Oral Soln 100 MG/10 ML UDC GTUBE SCH ×2 (07:54→19:55)
[2021-09-09] MEDS: Chlorhexidine Rinse 15 ML MOUTHWASH MM SCH ×2 (07:54→19:55)
[2021-09-09] MEDS: Ascorbic Acid 500 MG TABLET PO SCH (07:55)
[2021-09-09] MEDS: Cholecalciferol (D-3) 1,000 UNIT (25MCG) TABLET PO SCH (07:55)
[2021-09-09] MEDS: Pantoprazole 40 MG VIAL IVP SCH (07:55)
[2021-09-09] MEDS: Furosemide 40 MG/4 ML VIAL IVP SCH (07:55)
[2021-09-09] MEDS: Budesonide/Formoterol 160/4.5 1 PUFF INH IH SCH ×2 (08:02→20:25)
[2021-09-09] MEDS: ELDERBERRY PO SCH (08:37)
[2021-09-09] MEDS: [UNRECOGNIZED DRUG - OTHER] PO SCH (08:37)
[2021-09-09] MEDS: Heparin 25,000UNIT/250ML 1/2NS 25,000 UNIT/250 ML IV.SOLN IVC SCH (17:20)
[2021-09-10] MEDS: Midazolam HCl 50 MG/100 ML IV.SOLN IVC SCH ×6 (00:24→21:57)
[2021-09-10] MEDS: Cisatracurium 400 MG in 0.9 % Sodium Chloride 360 ML IVC SCH ×3 (02:09→21:55)
[2021-09-10] MEDS: Levalbuterol Neb 1.25 MG/3 ML IH SCH ×4 (03:46→21:25)
[2021-09-10 03:49] LABS: Basophils # 0.1 K/mcL (0.0-0.2); Basophils % 1.2 %; Eosinophils # 0.1 K/mcL (0.0-0.6); Eosinophils % 1.9 %; Hematocrit 27.6 % (37.5-50.1); Immature Granulocytes % 12.2 % (0-4); Lymphocytes # 0.8 K/mcL (0.6-4.6); Lymphocytes % 12.3 %; Mean Corpuscular Hemoglobin 31.1 pg (28.0-33.3); Mean Corpuscular Volume 107.4 fL (83.0-100.0); Mean Platelet Volume 10.7 fL (9.4-12.4); Monocytes # 0.6 K/mcL (0.0-1.3); Monocytes % 8.9 %; Neutrophils # 4.3 K/mcL (1.6-8.9); Nucleated Red Blood Cells 0.7 /100 WBC (0); Platelet Count 173 K/mcL (140-400); Red Blood Count 2.57 M/mcL (4.19-5.50); Red Cell Distribution Width 17.6 % (11.5-14.5); Segmented Neutrophils % 63.5 %; White Blood Count 6.7 K/mcL (4.3-11.1)
[2021-09-10] MEDS: Artificial Tears SOLN 15 ML BOTTLE BOTH EYES SCH ×6 (03:50→23:14)
[2021-09-10] MEDS: Piperacillin/Tazobactam 3.375 GM in 0.9 % Sodium Chloride Mini Bag 100 ML IVPB SCH ×3 (03:53→20:06)
[2021-09-10 03:56] LABS: INR 1.2; Prothrombin Time 13.1 Seconds (9.4-12.1)
[2021-09-10 04:03] LABS: ABG Base Excess 12 mEq/L (-2 to 3); ABG HCO3 39 mEq/L (21-27); ABG Oxygen Saturation 91 % (95-98); ABG PCO2 71 mmHg (35-45); ABG PH 7.35 pH Units (7.32-7.45); ABG PO2 67 mmHg (85-104); ABG TCO2 41 mEq/L (20-26); Blood Gas Modality ASSIST CONTROL; Blood Gas VT 420 cc
[2021-09-10 04:12] LABS: Alanine Aminotransferase 33 Units/L (7-52); Albumin 2.4 g/dL (3.5-5.7); Albumin/Globulin Ratio 0.6 (1.1-2.2); Alkaline Phosphatase 51 Units/L (34-104); Aspartate Amino Transferase 36 Units/L (13-39); BUN/Creatinine Ratio 80 (6-26); Bilirubin,Total 0.5 mg/dL (0.3-1.0); Blood Urea Nitrogen 32 mg/dL (6-20); Calcium 8.2 mg/dL (8.6-10.3); Carbon Dioxide 40 mEq/L (23-29); Chloride 97 mEq/L (98-107); Globulin 3.7 g/dL (2.4-3.5); Glucose 118 mg/dL (70-105); Magnesium 2.1 mg/dL (1.6-2.6); Osmolality,Calculated 296 (280-300); Phosphorous 3.1 mg/dL (2.7-4.5); Potassium 4.6 mEq/L (3.5-5.1); Sodium 139 mEq/L (136-145); Total Protein 6.1 g/dL (6.4-8.9); eGFR For African Americans > 60 (> 60); eGFR For Non-African Americans > 60 (> 60)
[2021-09-10 04:14] LABS: Anisocytosis 1+ (Not Present); Basophilic Stippling 1+ (Not Present); Hypochromasia Present (Not Present)
[2021-09-10 04:15] LABS: Platelet Estimate Normal (Normal); Polychromasia 2+ (Not Present)
[2021-09-10] MEDS: Dexmedetomidine HCl 400 MCG/100 ML MLS IVC SCH ×4 (04:17→21:22)
[2021-09-10] MEDS: *HR* Metoprolol 5 MG/5 ML VIAL IVP PRN ×2 (07:08→16:39)
[2021-09-10] MEDS: Cholecalciferol (D-3) 1,000 UNIT (25MCG) TABLET PO SCH (08:06)
[2021-09-10] MEDS: Ascorbic Acid 500 MG TABLET PO SCH (08:06)
[2021-09-10] MEDS: Pantoprazole 40 MG VIAL IVP SCH (08:06)
[2021-09-10] MEDS: Furosemide 40 MG/4 ML VIAL IVP SCH (08:07)
[2021-09-10] MEDS: Chlorhexidine Rinse 15 ML MOUTHWASH MM SCH ×2 (08:07→20:06)
[2021-09-10] MEDS: FentaNYL (PF) 2,500 MCG/50 ML IV.SOLN IVC SCH ×2 (09:18→18:33)
[2021-09-10] MEDS: Budesonide/Formoterol 160/4.5 1 PUFF INH IH SCH ×2 (10:12→21:25)
[2021-09-10] MEDS: Docusate Oral Soln 100 MG/10 ML UDC GTUBE SCH ×2 (12:26→20:06)
[2021-09-10] MEDS: Heparin 25,000UNIT/250ML 1/2NS 25,000 UNIT/250 ML IV.SOLN IVC SCH (13:49)
[2021-09-11] MEDS: *HR* Metoprolol 5 MG/5 ML VIAL IVP PRN ×3 (02:48→21:51)
[2021-09-11] MEDS: Midazolam HCl 50 MG/100 ML IV.SOLN IVC SCH ×5 (02:50→21:17)
[2021-09-11] MEDS: Dexmedetomidine HCl 400 MCG/100 ML MLS IVC SCH ×6 (02:50→21:51)
[2021-09-11] MEDS: Levalbuterol Neb 1.25 MG/3 ML IH SCH ×4 (03:28→21:34)
[2021-09-11 03:33] LABS: Basophils # 0.1 K/mcL (0.0-0.2); Basophils % 0.9 %; Eosinophils # 0.1 K/mcL (0.0-0.6); Eosinophils % 1.8 %; Hematocrit 26.2 % (37.5-50.1); Hemoglobin 7.9 g/dL (12.9-16.9); Immature Granulocytes % 10.5 % (0-4); Lymphocytes # 0.9 K/mcL (0.6-4.6); Lymphocytes % 13.6 %; Mean Corpuscular HGB Conc 30.2 g/dL (31.6-35.5); Mean Corpuscular Hemoglobin 32.1 pg (28.0-33.3); Mean Corpuscular Volume 106.5 fL (83.0-100.0); Mean Platelet Volume 10.9 fL (9.4-12.4); Monocytes % 9.6 %; Neutrophils # 4.3 K/mcL (1.6-8.9); Nucleated Red Blood Cells 1.2 /100 WBC (0); Platelet Count 170 K/mcL (140-400); Red Blood Count 2.46 M/mcL (4.19-5.50); Red Cell Distribution Width 18.1 % (11.5-14.5); Segmented Neutrophils % 63.6 %; White Blood Count 6.7 K/mcL (4.3-11.1)
[2021-09-11 03:38] LABS: Monocytes # 0.6 K/mcL (0.0-1.3)
[2021-09-11 03:43] LABS: INR 1.2; Prothrombin Time 13.7 Seconds (9.4-12.1)
[2021-09-11] MEDS: Artificial Tears SOLN 15 ML BOTTLE BOTH EYES SCH ×5 (03:50→20:52)
[2021-09-11 03:53] LABS: Alanine Aminotransferase 30 Units/L (7-52); Albumin 2.3 g/dL (3.5-5.7); Albumin/Globulin Ratio 0.6 (1.1-2.2); Alkaline Phosphatase 52 Units/L (34-104); Aspartate Amino Transferase 35 Units/L (13-39); BUN/Creatinine Ratio 71 (6-26); Bilirubin,Total 0.6 mg/dL (0.3-1.0); Blood Urea Nitrogen 30 mg/dL (6-20); Calcium 7.9 mg/dL (8.6-10.3); Carbon Dioxide 37 mEq/L (23-29); Chloride 96 mEq/L (98-107); Globulin 3.6 g/dL (2.4-3.5); Glucose 131 mg/dL (70-105); Osmolality,Calculated 294 (280-300); Phosphorous 3.1 mg/dL (2.7-4.5); Potassium 4.2 mEq/L (3.5-5.1); Sodium 138 mEq/L (136-145); Total Protein 5.9 g/dL (6.4-8.9); eGFR For African Americans > 60 (> 60); eGFR For Non-African Americans > 60 (> 60)
[2021-09-11 03:55] LABS: ABG Base Excess 12 mEq/L (-2 to 3); ABG HCO3 40 mEq/L (21-27); ABG Oxygen Saturation 79 % (95-98); ABG PCO2 71 mmHg (35-45); ABG PH 7.36 pH Units (7.32-7.45); ABG PO2 48 mmHg (85-104); ABG TCO2 42 mEq/L (20-26); Blood Gas Modality ASSIST CONTROL; Blood Gas VT 420 cc
[2021-09-11 03:58] LABS: Anisocytosis 1+ (Not Present); Hypochromasia Present (Not Present)
[2021-09-11 03:59] LABS: Platelet Estimate Normal (Normal); Polychromasia 1+ (Not Present)
[2021-09-11] MEDS: Piperacillin/Tazobactam 3.375 GM in 0.9 % Sodium Chloride Mini Bag 100 ML IVPB SCH ×3 (04:02→20:51)
[2021-09-11] MEDS: FentaNYL (PF) 2,500 MCG/50 ML IV.SOLN IVC SCH ×3 (04:15→23:33)
[2021-09-11 04:57] LABS: ABG Base Excess 13 mEq/L (-2 to 3); ABG HCO3 41 mEq/L (21-27); ABG Oxygen Saturation 89 % (95-98); ABG PCO2 78 mmHg (35-45); ABG PH 7.33 pH Units (7.32-7.45); ABG PO2 64 mmHg (85-104); ABG TCO2 43 mEq/L (20-26); Blood Gas Modality ASSIST CONTROL; Blood Gas VT 420 cc
[2021-09-11] MEDS: Acetaminophen 325 MG TABLET PO PRN (06:02)
[2021-09-11] MEDS: Heparin 25,000UNIT/250ML 1/2NS 25,000 UNIT/250 ML IV.SOLN IVC SCH (08:51)
[2021-09-11] MEDS: Cisatracurium 400 MG in 0.9 % Sodium Chloride 360 ML IVC SCH ×2 (08:51→18:07)
[2021-09-11] MEDS: Cholecalciferol (D-3) 1,000 UNIT (25MCG) TABLET PO SCH (08:52)
[2021-09-11] MEDS: Docusate Oral Soln 100 MG/10 ML UDC GTUBE SCH ×2 (08:52→20:51)
[2021-09-11] MEDS: Ascorbic Acid 500 MG TABLET PO SCH (08:52)
[2021-09-11] MEDS: Chlorhexidine Rinse 15 ML MOUTHWASH MM SCH ×2 (08:53→20:51)
[2021-09-11] MEDS: Pantoprazole 40 MG VIAL IVP SCH (08:53)
[2021-09-11] MEDS: Furosemide 40 MG/4 ML VIAL IVP SCH ×3 (08:53→20:52)
[2021-09-11] MEDS: Budesonide/Formoterol 160/4.5 1 PUFF INH IH SCH ×2 (09:50→21:34)
[2021-09-11] MEDS: Acetylcysteine 10% 2 ML INHSOL IH SCH ×3 (09:50→21:34)
[2021-09-12] MEDS: Artificial Tears SOLN 15 ML BOTTLE BOTH EYES SCH ×3 (00:19→08:09)
[2021-09-12] MEDS: Dexmedetomidine HCl 400 MCG/100 ML MLS IVC SCH ×6 (01:24→21:13)
[2021-09-12] MEDS: Midazolam HCl 50 MG/100 ML IV.SOLN IVC SCH ×7 (01:30→23:52)
[2021-09-12] MEDS: Cisatracurium 400 MG in 0.9 % Sodium Chloride 360 ML IVC SCH ×3 (02:30→20:35)
[2021-09-12] MEDS: Acetylcysteine 10% 2 ML INHSOL IH SCH ×4 (03:39→20:18)
[2021-09-12] MEDS: Levalbuterol Neb 1.25 MG/3 ML IH SCH ×2 (03:39→07:30)
[2021-09-12] MEDS: Heparin 25,000UNIT/250ML 1/2NS 25,000 UNIT/250 ML IV.SOLN IVC SCH (03:50)
[2021-09-12 03:59] LABS: Hematocrit 27.2 % (37.5-50.1); Hemoglobin 8.5 g/dL (12.9-16.9); Mean Corpuscular HGB Conc 31.3 g/dL (31.6-35.5); Mean Corpuscular Hemoglobin 33.5 pg (28.0-33.3); Mean Corpuscular Volume 107.1 fL (83.0-100.0); Mean Platelet Volume 10.8 fL (9.4-12.4); Nucleated Red Blood Cells 0.5 /100 WBC (0); Platelet Count 166 K/mcL (140-400); Red Blood Count 2.54 M/mcL (4.19-5.50); Red Cell Distribution Width 18.6 % (11.5-14.5)
[2021-09-12 04:07] LABS: INR 1.3; Prothrombin Time 14.4 Seconds (9.4-12.1)
[2021-09-12 04:08] LABS: White Blood Count 10.9 K/mcL (4.3-11.1)
[2021-09-12 04:30] LABS: Anisocytosis 1+ (Not Present); Eosinophils # 0.2 K/mcL (0.0-0.6); Lymphocytes # 0.4 K/mcL (0.6-4.6); Macrocytosis Present (Not Present); Monocytes # 0.2 K/mcL (0.0-1.3); Neutrophils # 9.8 K/mcL (1.6-8.9); Platelet Estimate Normal (Normal)
[2021-09-12 04:33] LABS: Alanine Aminotransferase 33 Units/L (7-52); Albumin 2.5 g/dL (3.5-5.7); Albumin/Globulin Ratio 0.6 (1.1-2.2); Alkaline Phosphatase 57 Units/L (34-104); Aspartate Amino Transferase 34 Units/L (13-39); BUN/Creatinine Ratio 63 (6-26); Bilirubin,Total 0.8 mg/dL (0.3-1.0); Blood Urea Nitrogen 26 mg/dL (6-20); Carbon Dioxide 41 mEq/L (23-29); Chloride 91 mEq/L (98-107); Globulin 4.1 g/dL (2.4-3.5); Glucose 142 mg/dL (70-105); Magnesium 2.1 mg/dL (1.6-2.6); Osmolality,Calculated 287 (280-300); Phosphorous 3.5 mg/dL (2.7-4.5); Potassium 4.3 mEq/L (3.5-5.1); Sodium 135 mEq/L (136-145); Total Protein 6.6 g/dL (6.4-8.9); eGFR For African Americans > 60 (> 60); eGFR For Non-African Americans > 60 (> 60)
[2021-09-12 05:05] LABS: ABG Base Excess 15 mEq/L (-2 to 3); ABG HCO3 44 mEq/L (21-27); ABG Oxygen Saturation 88 % (95-98); ABG PCO2 90 mmHg (35-45); ABG PO2 65 mmHg (85-104); ABG TCO2 47 mEq/L (20-26); Blood Gas Modality ASSIST CONTROL; Blood Gas VT 420 cc
[2021-09-12] MEDS: Piperacillin/Tazobactam 3.375 GM in 0.9 % Sodium Chloride Mini Bag 100 ML IVPB SCH ×3 (05:19→21:16)
[2021-09-12] MEDS: Budesonide/Formoterol 160/4.5 1 PUFF INH IH SCH ×2 (07:30→20:17)
[2021-09-12] MEDS: Ipratropium/Albuterol Neb 3 ML IH SCH ×5 (08:02→23:26)
[2021-09-12] MEDS: Pantoprazole 40 MG VIAL IVP SCH (08:10)
[2021-09-12] MEDS: Chlorhexidine Rinse 15 ML MOUTHWASH MM SCH ×2 (08:10→21:17)
[2021-09-12] MEDS: Docusate Oral Soln 100 MG/10 ML UDC GTUBE SCH ×2 (08:10→21:17)
[2021-09-12] MEDS: Furosemide 40 MG/4 ML VIAL IVP SCH ×2 (08:11→21:16)
[2021-09-12] MEDS: Ascorbic Acid 500 MG TABLET PO SCH (08:13)
[2021-09-12] MEDS: Lacri-Lube 3.5 GM TUBE BOTH EYES SCH ×2 (09:46→21:17)
[2021-09-12] MEDS: Albumin 25% 25gram/100mL 25 GM/100 ML IV.SOLN IVPB SCH ×2 (11:22→21:13)
[2021-09-12] MEDS: FentaNYL (PF) 2,500 MCG/50 ML IV.SOLN IVC SCH ×2 (11:59→16:02)
[2021-09-12] MEDS: *HR* Heparin 5,000 UNIT/ML VIAL IVP PRN (21:40)
[2021-09-13] MEDS: Dexmedetomidine HCl 400 MCG/100 ML MLS IVC SCH ×6 (00:29→20:22)
[2021-09-13] MEDS: Lacri-Lube 3.5 GM TUBE BOTH EYES SCH ×2 (00:30→20:11)
[2021-09-13] MEDS: Heparin 25,000UNIT/250ML 1/2NS 25,000 UNIT/250 ML IV.SOLN IVC SCH ×2 (00:30→16:24)
[2021-09-13] MEDS: FentaNYL (PF) 2,500 MCG/50 ML IV.SOLN IVC SCH ×3 (02:53→20:35)
[2021-09-13 03:33] LABS: Basophils # 0.1 K/mcL (0.0-0.2); Basophils % 0.6 %; Eosinophils # 0.1 K/mcL (0.0-0.6); Eosinophils % 1.2 %; Hematocrit 24.3 % (37.5-50.1); Hemoglobin 7.3 g/dL (12.9-16.9); Immature Granulocytes % 7.2 % (0-4); Lymphocytes # 0.9 K/mcL (0.6-4.6); Lymphocytes % 9.9 %; Mean Corpuscular Hemoglobin 32.3 pg (28.0-33.3); Mean Corpuscular Volume 107.5 fL (83.0-100.0); Mean Platelet Volume 10.8 fL (9.4-12.4); Monocytes # 0.7 K/mcL (0.0-1.3); Monocytes % 8.1 %; Neutrophils # 6.5 K/mcL (1.6-8.9); Nucleated Red Blood Cells 0.3 /100 WBC (0); Platelet Count 143 K/mcL (140-400); Red Blood Count 2.26 M/mcL (4.19-5.50); Red Cell Distribution Width 18.5 % (11.5-14.5); White Blood Count 8.9 K/mcL (4.3-11.1)
[2021-09-13 03:39] LABS: VBG Ionized Calcium 1.09 mmol/L (1.15-1.35)
[2021-09-13 03:41] LABS: Heparin anti-factor XA UFH 0.41 IU/mL (0.30-0.70); INR 1.3; Prothrombin Time 14.4 Seconds (9.4-12.1)
[2021-09-13] MEDS: Acetylcysteine 10% 2 ML INHSOL IH SCH ×4 (03:43→19:58)
[2021-09-13] MEDS: Ipratropium/Albuterol Neb 3 ML IH SCH ×6 (03:43→23:27)
[2021-09-13 03:50] LABS: Anisocytosis 2+ (Not Present); Large Platelets Present (Not Present); Macrocytosis Present (Not Present); Platelet Estimate Normal (Normal)
[2021-09-13 03:55] LABS: Alanine Aminotransferase 25 Units/L (7-52); Albumin 2.8 g/dL (3.5-5.7); Albumin/Globulin Ratio 0.8 (1.1-2.2); Alkaline Phosphatase 49 Units/L (34-104); Aspartate Amino Transferase 25 Units/L (13-39); BUN/Creatinine Ratio 71 (6-26); Bilirubin,Total 0.9 mg/dL (0.3-1.0); Blood Urea Nitrogen 30 mg/dL (6-20); Calcium 8.2 mg/dL (8.6-10.3); Carbon Dioxide 40 mEq/L (23-29); Chloride 92 mEq/L (98-107); Globulin 3.7 g/dL (2.4-3.5); Glucose 136 mg/dL (70-105); Osmolality,Calculated 290 (280-300); Phosphorous 2.7 mg/dL (2.7-4.5); Potassium 3.7 mEq/L (3.5-5.1); Sodium 136 mEq/L (136-145); Total Protein 6.5 g/dL (6.4-8.9); eGFR For African Americans > 60 (> 60); eGFR For Non-African Americans > 60 (> 60)
[2021-09-13 04:14] LABS: ABG Base Excess 12 mEq/L (-2 to 3); ABG HCO3 41 mEq/L (21-27); ABG Oxygen Saturation 86 % (95-98); ABG PCO2 78 mmHg (35-45); ABG PH 7.33 pH Units (7.32-7.45); ABG PO2 58 mmHg (85-104); ABG TCO2 43 mEq/L (20-26); Blood Gas VT 450 cc
[2021-09-13] MEDS: Piperacillin/Tazobactam 3.375 GM in 0.9 % Sodium Chloride Mini Bag 100 ML IVPB SCH ×3 (04:34→20:05)
[2021-09-13] MEDS: Midazolam HCl 50 MG/100 ML IV.SOLN IVC SCH ×5 (04:34→22:45)
[2021-09-13] MEDS: Albumin 25% 25gram/100mL 25 GM/100 ML IV.SOLN IVPB SCH ×3 (04:36→20:06)
[2021-09-13] MEDS: Cisatracurium 400 MG in 0.9 % Sodium Chloride 360 ML IVC SCH ×3 (05:09→22:44)
[2021-09-13] MEDS: Calcium Gluconate 1gm/50mL 1 GM/50 ML BAG IVPB PRN ×2 (05:27→14:13)
[2021-09-13] MEDS: Potassium Chloride 40 MEQ/200 ML BAG IVPB PRN (05:27)
[2021-09-13] MEDS: Chlorhexidine Rinse 15 ML MOUTHWASH MM SCH ×2 (07:24→20:11)
[2021-09-13] MEDS: Docusate Oral Soln 100 MG/10 ML UDC GTUBE SCH ×2 (07:24→20:08)
[2021-09-13] MEDS: Furosemide 40 MG/4 ML VIAL IVP SCH ×2 (07:24→20:11)
[2021-09-13] MEDS: Pantoprazole 40 MG VIAL IVP SCH (07:25)
[2021-09-13] MEDS: Ascorbic Acid 500 MG TABLET PO SCH (07:25)
[2021-09-13] MEDS: Budesonide/Formoterol 160/4.5 1 PUFF INH IH SCH ×2 (07:40→19:58)
[2021-09-13 10:32] LABS: VBG Ionized Calcium 1.06 mmol/L (1.15-1.35)
[2021-09-13] MEDS: Acetaminophen 325 MG TABLET PO PRN (15:43)
[2021-09-13] MEDS: *HR* Metoprolol 5 MG/5 ML VIAL IVP PRN (16:11)
[2021-09-13 18:40] LABS: Amorphous Sediment,Urine Few per hpf (None-Few); Bacteria,Urine Few per hpf (None-Few); Bilirubin,Urine Negative (Negative); Blood,Urine Trace (Negative); Clarity,Urine Clear (Clear); Color,Urine Yellow (Yellow); Glucose,Urine (UA) Normal (Normal); Ketones,Urine Negative (Negative); Leukocyte Esterase,Urine Negative (Negative); Nitrite,Urine Negative (Negative); Protein,Urine 30 mg/dL (Neg-Trace); RBC,Urine 0-3 per hpf (0-3); Specific Gravity,Urine 1.024 (1.010-1.025); Urobilinogen,Urine >=8.0 mg/dL (Normal); WBC,Urine 0-3 per hpf (0-3)
[2021-09-14] MEDS: Dexmedetomidine HCl 400 MCG/100 ML MLS IVC SCH ×6 (00:18→19:13)
[2021-09-14] MEDS: Albumin 25% 25gram/100mL 25 GM/100 ML IV.SOLN IVPB SCH ×3 (03:35→19:37)
[2021-09-14] MEDS: Piperacillin/Tazobactam 3.375 GM in 0.9 % Sodium Chloride Mini Bag 100 ML IVPB SCH (03:35)
[2021-09-14] MEDS: Midazolam HCl 50 MG/100 ML IV.SOLN IVC SCH ×5 (03:37→19:12)
[2021-09-14] MEDS: Ipratropium/Albuterol Neb 3 ML IH SCH ×5 (03:58→20:44)
[2021-09-14] MEDS: Acetylcysteine 10% 2 ML INHSOL IH SCH ×4 (03:58→20:44)
[2021-09-14 04:14] LABS: ABG Base Excess 17 mEq/L (-2 to 3); ABG HCO3 47 mEq/L (21-27); ABG Oxygen Saturation 91 % (95-98); ABG PCO2 100 mmHg (35-45); ABG PH 7.28 pH Units (7.32-7.45); ABG PO2 76 mmHg (85-104); ABG TCO2 50 mEq/L (20-26); Blood Gas Modality ASSIST CONTROL; Blood Gas VT 450 cc
[2021-09-14 04:31] LABS: INR 1.4; Prothrombin Time 15.9 Seconds (9.4-12.1)
[2021-09-14 04:32] LABS: Alanine Aminotransferase 24 Units/L (7-52); Albumin 3.1 g/dL (3.5-5.7); Alkaline Phosphatase 46 Units/L (34-104); Aspartate Amino Transferase 24 Units/L (13-39); BUN/Creatinine Ratio 68 (6-26); Bilirubin,Total 0.7 mg/dL (0.3-1.0); Blood Urea Nitrogen 28 mg/dL (6-20); Calcium 7.6 mg/dL (8.6-10.3); Carbon Dioxide 40 mEq/L (23-29); Chloride 96 mEq/L (98-107); Globulin 3.1 g/dL (2.4-3.5); Glucose 140 mg/dL (70-105); Magnesium 2.1 mg/dL (1.6-2.6); Osmolality,Calculated 296 (280-300); Sodium 139 mEq/L (136-145); Total Protein 6.2 g/dL (6.4-8.9); eGFR For African Americans > 60 (> 60); eGFR For Non-African Americans > 60 (> 60)
[2021-09-14 05:34] LABS: Hemoglobin 6.4 g/dL (12.9-16.9); Monocytes % 8.9 %; Red Cell Distribution Width 18.1 % (11.5-14.5)
[2021-09-14 05:35] LABS: Basophils # 0.1 K/mcL (0.0-0.2); Basophils % 0.6 %; Hematocrit 21.6 % (37.5-50.1); Immature Granulocytes % 7.5 % (0-4); Lymphocytes # 0.8 K/mcL (0.6-4.6); Lymphocytes % 9.3 %; Mean Corpuscular HGB Conc 29.6 g/dL (31.6-35.5); Mean Corpuscular Volume 111.3 fL (83.0-100.0); Mean Platelet Volume 11.2 fL (9.4-12.4); Monocytes # 0.8 K/mcL (0.0-1.3); Nucleated Red Blood Cells 0.5 /100 WBC (0); Platelet Count 140 K/mcL (140-400); Red Blood Count 1.94 M/mcL (4.19-5.50); Segmented Neutrophils % 73.7 %; White Blood Count 8.9 K/mcL (4.3-11.1)
[2021-09-14] MEDS: FentaNYL (PF) 2,500 MCG/50 ML IV.SOLN IVC SCH ×2 (05:44→14:30)
[2021-09-14 05:50] LABS: Neutrophils # 6.6 K/mcL (1.6-8.9)
[2021-09-14 06:23] LABS: Hypochromasia Present (Not Present); Macrocytosis Present (Not Present); Polychromasia 2+ (Not Present); Stomatocytes 1+ (Not Present)
[2021-09-14 06:24] LABS: Anisocytosis 1+ (Not Present); Platelet Estimate Normal (Normal)
[2021-09-14] MEDS: Cisatracurium 400 MG in 0.9 % Sodium Chloride 360 ML IVC SCH (07:11)
[2021-09-14] MEDS: Pantoprazole 40 MG VIAL IVP SCH (07:45)
[2021-09-14] MEDS: Ascorbic Acid 500 MG TABLET PO SCH (07:45)
[2021-09-14] MEDS: Chlorhexidine Rinse 15 ML MOUTHWASH MM SCH ×2 (07:45→19:37)
[2021-09-14] MEDS: Docusate Oral Soln 100 MG/10 ML UDC GTUBE SCH ×2 (07:46→19:38)
[2021-09-14] MEDS: Lacri-Lube 3.5 GM TUBE BOTH EYES SCH ×2 (07:47→19:38)
[2021-09-14] MEDS: Furosemide 40 MG/4 ML VIAL IVP SCH ×2 (07:48→19:38)
[2021-09-14] MEDS: Budesonide/Formoterol 160/4.5 1 PUFF INH IH SCH ×2 (07:50→20:45)
[2021-09-14] MEDS ORDERED: 0.9 % Sodium Chloride 250 ML ONE (11:36)
[2021-09-14 11:52] LABS: Hematocrit 20.1 % (37.5-50.1)
[2021-09-14 11:57] LABS: Hemoglobin 5.6 g/dL (12.9-16.9)
[2021-09-14] MEDS ORDERED: 0.9 % Sodium Chloride 250 ML IVC SCH (12:00)
[2021-09-14 13:47] VITALS: TEMP 98.4
[2021-09-14] MEDS: *HR* LORazepam 2 MG/ML VIAL IVP PRN ×6 (15:49→18:15)
[2021-09-14 18:15] LABS: Hematocrit 24.7 % (37.5-50.1)
[2021-09-14 18:16] LABS: Hemoglobin 7.3 g/dL (12.9-16.9)
[2021-09-14] MEDS: *HR* LORazepam 2 MG/ML VIAL IVP SCH ×2 (18:34→19:11)
[2021-09-14] MEDS ORDERED: *HR* LORazepam 2 MG/ML VIAL IVP PRN (19:34)
[2021-09-14 19:36] VITALS: BP 127/74; PULSE 128; O2SAT 88
[2021-09-14] MEDS ORDERED: *HR* LORazepam 2 MG/ML VIAL IVP ONE (19:58)
[2021-09-14] MEDS ORDERED: Morphine Sulfate 2 MG/ML SYRINGE IVP ONE (19:58)
== END 2021-09-14 22:10 | disposition expired | DRG 207 ==
LOC: 3NENU 18:55 → SUATTDRO 18:55 → ICNU 08-23 16:33
PROVIDERS: ADMIT General Practice; ATTEND Internal Medicine